=== PATIENT | female | born 1990 | race Caucasian/White ===

== ENCOUNTER 2016-09-21 10:16 | Outpatient (CLI) | payer MEDICAID ==
--- NOTE | 2016-09-21 10:54 | Non Stress Test Report ---
Non Stress Test Datetime Report Generated by CPN: 09/21/2016 10:54 DEMOGRAPHIC EGA NST: 34.5 INDICATION Indication for Study: Diabetes Mellitus; Ordered by Provider MONITORING Monitor Explained: Monitor Explained; Test Explained; Patient Verbalized Understanding Time on Monitor: 09/21/2016 10:24 Time off Monitor: 09/21/2016 10:47 NST Duration: 23 NST INTERVENTIONS NST Interventions: PO Hydration; Reposition Patient Physician Notified NST: C Cedeño CNM BABY A: [id number] BABY A Movement : Present Contraction Frequency : Irr FHR Baseline : 135 Accelerations : Prolonged Decelerations : None Variability : Moderate 6-25bpm NST Review: Meets Criteria for Reactive NST NST Review and Verified By : Dee Valencia RN NST Results: Reactive NST REPORT Report Trigger: Send Report
== END 2016-09-21 10:49 | disposition home or self-care (01) ==
LOC: LC 10:16
PROVIDERS: ATTEND Obstetrics & Gynecology
PROC: 4A1HXCZ Monitoring of Products of Conception, Cardiac Rate, External Approach (ICD-10-PCS; principal; 2016-09-21)
DX: O24.419 Gestational diabetes mellitus in pregnancy, unspecified control (principal); Z3A.34 34 weeks gestation of pregnancy
CPT/HCPCS: 59025

== ENCOUNTER 2016-10-09 11:44 | Outpatient (CLI) | payer MEDICAID ==
--- NOTE | 2016-10-09 12:00 | L&D Flow Sheet ---
LD Flowsheet Datetime Report Generated by CPN: 10/09/2016 12:00 Datetime: 10/09/2016 11:52 Vital Signs NBP Sys/Rebekah/Mean (mmHg): 100 (QS system process) : 57 (QS system process) : 75 (QS system process) Pulse: 73 (QS system process) Respirations: 16 (Alison Vitrano, RN) Temperature (F): 97.8 (Alison Vitrano, RN) Temperature (C): 36.6 (QS system process) Temperature Route: Oral (Alison Vitrano, RN) Patient Care Patient Position/Activity: Left Lateral; Semi-Fowlers (Alison Kyra, RN) I/O Interventions: Clear Liquids Given (Alison Vitrano, RN) Teaching Instructional Method: Verbal; Patient Instructed; Family/Support Person Instructed; Verbalized Understanding (Alison Rae RN) Plan of Care: Plan of Care Discussed (Alison Rae RN) Unit Routine: [place] to Room; Call Ly; Bed; Unit Personnel; Monitoring; Safety/Fall Risk Prevention; Bathroom Privileges (Alison Elviraano, RN) Datetime: 10/09/2016 11:51 Communication Communication Comments: Pt to unit for repeat NST per Melinda Taylor CNM. Pt receiving NSTs for GDM. Pt denies complaints or needs at this time. (Alison Rae RN)
--- NOTE | 2016-10-09 12:19 | Non Stress Test Report ---
Non Stress Test Datetime Report Generated by CPN: 10/09/2016 12:19 DEMOGRAPHIC EGA NST: 37.2 INDICATION Indication for Study: Ordered by Provider MONITORING Monitor Explained: Monitor Explained; Test Explained; Patient Verbalized Understanding Time on Monitor: 10/09/2016 11:52 Time off Monitor: 10/09/2016 12:13 NST Duration: 21 NST INTERVENTIONS NST Interventions: None Physician Notified NST: A. Emmel, CNM BABY A: [id number] BABY A Movement : Present Contraction Frequency : Occasional FHR Baseline : 135 Accelerations : 15X15 Variability : Moderate 6-25bpm NST Review: Meets Criteria for Reactive NST NST Review and Verified By : Robbi Alva RN NST Results: Reactive NST REPORT Report Trigger: Send Report
== END 2016-10-09 12:15 | disposition home or self-care (01) ==
LOC: LC 11:44
PROVIDERS: ATTEND Obstetrics & Gynecology
PROC: 4A1HXCZ Monitoring of Products of Conception, Cardiac Rate, External Approach (ICD-10-PCS; principal; 2016-10-09)
DX: O47.1 False labor at or after 37 completed weeks of gestation (principal); Z3A.37 37 weeks gestation of pregnancy
CPT/HCPCS: 59025

== ENCOUNTER 2016-10-22 07:11 | Inpatient (IN) | payer MEDICAID ==
[2016-10-22] MEDS ORDERED: RINGERS SOLUTION,LACTATED 1,000 ML IV ONE (07:29)
[2016-10-22] MEDS ORDERED: RINGERS SOLUTION,LACTATED 1,000 ML IV PRN ×2 (07:29→07:30)
[2016-10-22] MEDS ORDERED: RINGERS SOLUTION,LACTATED 300 ML IV ONE (07:30)
--- NOTE | 2016-10-22 08:00 | L&D Flow Sheet ---
LD Flowsheet Datetime Report Generated by CPN: 10/22/2016 08:00 Datetime: 10/22/2016 07:54 Temperature (F): 97.6 (Marck Shari, RN) Temperature (C): 36.4 (QS system process) Datetime: 10/22/2016 07:49 Vaginal Exam Dilatation (cm): 2.0 (Marck Mccarthy RN) Effacement (%): 50 (Marck Mccarthy RN) Station: -2 (Marck Mccarthy RN) Exam by: Carl Mccarthy RN (Marck Mccarthy RN) Vaginal Bleeding: None (Marck Mccarthy RN) Cervix, Consistency: Moderate (Marck Mccarthy RN) Cervix, Position: Posterior (Marck Mccarthy RN) Datetime: 10/22/2016 07:42 Patient Care IV/Blood Work: IV Started; IV Bolus Started (Marck Mccarthy RN) Patient Care Comments: 18G L Forearm; LR bolus 300ml per order then 125ml/hr. Pt tolerated well, good blood return. (Marck Mccarthy, RN) Datetime: 10/22/2016 07:33 Procedures: Consents Signed (Marck Mccarthy, RN) Datetime: 10/22/2016 07:29 Vital Signs NBP Sys/Rebekah/Mean (mmHg): 123 (QS system process) : 72 (QS system process) : 90 (QS system process) Pulse: 100 (QS system process)
[2016-10-22 08:08] LABS: APPEARANCE,URINE CLOUDY; BILIRUBIN,URINE NEGATIVE (NEGATIVE); GLUCOSE, URINE NEGATIVE (NEGATIVE); KETONES,URINE NEGATIVE (NEGATIVE); LEUKOCYTE ESTERASE,URINE LARGE (NEGATIVE); NITRITE,URINE POSITIVE (NEGATIVE); PROTEIN,URINE NEGATIVE (NEGATIVE); URINE SPECIFIC GRAVITY 1.014; UROBILINOGEN,URINE NEGATIVE mg/dL (<2.0)
[2016-10-22] MEDS ORDERED: OXYTOCIN/NORMAL SALINE 1,000 ML IV PRN ×2 (08:21→16:54)
[2016-10-22 08:24] LABS: URINE BARBITURATES SCREEN NEGATIVE; URINE METHADONE SCREEN NEGATIVE; URINE OPIATES LOW NEGATIVE; URINE PHENCYCLIDINE SCREEN NEGATIVE
[2016-10-22] MEDS ORDERED: OXYTOCIN/NORMAL SALINE 20 UNIT/1,000 ML RTUINJ ONE (08:24)
[2016-10-22 08:26] LABS: ABSOLUTE LYMPHOCYTES (AUTO) 1.3 10^3/uL (0.5-4.7); ABSOLUTE MONOCYTES (AUTO) 0.9 10^3/uL (0.1-1.4); ABSOLUTE NEUT (AUTO) 7.5 10^3/uL (1.7-8.2); BASOPHILS % (AUTO) 0.2 % (0-2); EOSINOPHILS % (AUTO) 0.5 % (0-6); HEMATOCRIT 28.7 % (36.0-47.0); HEMOGLOBIN 9.7 g/dL (12.0-15.5); HGB HCT DIFFERENCE 0.4; MEAN CORPUSCULAR HEMOGLOBIN 27.4 pg (27.0-33.4); MEAN CORPUSCULAR HGB CONC 33.7 g/dL (32.0-36.0); MEAN CORPUSCULAR VOLUME 81 fl (80-97); MONOCYTES % (AUTO) 8.8 % (3-13); RED BLOOD COUNT 3.53 10^6/uL (3.72-5.28); SEGMENTED NEUTROPHILS % (AUTO) 77.5 % (42-78); WHITE BLOOD COUNT 9.7 10^3/uL (4.0-10.5)
--- NOTE | 2016-10-22 10:00 | L&D Flow Sheet ---
LD Flowsheet Datetime Report Generated by CPN: 10/22/2016 10:00 Datetime: 10/22/2016 09:58 Pitocin (milliunit): Pitocin Increased to (milliunits) @ 6 (Marck Shari, RN) Datetime: 10/22/2016 09:53 NBP Sys/Rebekah/Mean (mmHg): 116 (QS system process) : 65 (QS system process) : 84 (QS system process) Pulse: 65 (QS system process) Datetime: 10/22/2016 09:52 Patient Position/Activity: Right Extreme (Marck Mccarthy RN) Datetime: 10/22/2016 09:45 Monitor Mode: External; Palpation (Marck Mccarthy RN) Quality: Moderate (Marck Mccarthy RN) Resting Tone (Palpate): Relaxed (Marck Mccarthy RN) Contraction Comments: UTD; adjusting toco (Marck Mccarthy RN) Monitor Mode: External US (Marck Mccarthy RN) FHR Baseline Rate : 140 (Marck Mccarthy RN) Variability: Moderate 6-25 bpm (Marck Mccarthy RN) Accelerations: 10X10 (Marck Mccarthy RN) Decelerations: None (Marck cMcarthy RN) Pitocin (milliunit): Pitocin Remains (milliunits) @ 4 (Marck Mccarthy RN) Communication: RN at Bedside; RN Reviewed Strip (Marck Mccarthy RN) Datetime: 10/22/2016 09:40 Monitor Interventions for UA: [place] Adjusted (Marck Shari, RN) Datetime: 10/22/2016 09:38 NBP Sys/Rebekah/Mean (mmHg): 97 (QS system process) : 55 (QS system process) : 72 (QS system process) Pulse: 69 (QS system process) Datetime: 10/22/2016 09:36 Monitor Interventions for UA: [place] Adjusted (Marck Shari, RN) Pitocin (milliunit): Pitocin Increased to (milliunits) @ 4 (Marck Mccarthy, RN) Datetime: 10/22/2016 09:35 Pain Scale: 2 (Marck Mccarthy RN) Pain Presence: Intermittent (Marck Mccarthy RN) Pain Type: Contraction (Marck Mccarthy RN) Pain Location: Abdomen (Marck Mccarthy RN) Pain Relief Measures: Comfort Measures (Marck Mccarthy RN) Pain Coping: Talking Through Contractions; Declines Medication or Epidural (Marck Mccarthy RN) Pain Assessment Comments: Pt resting, no distress noted. (Marck Mccarthy RN) Comfort Measures: Breathing/Relaxation (Marck Mccarthy RN) Datetime: 10/22/2016 09:30 Monitor Mode: External; Palpation (Marck Mccarthy RN) Frequency (min): 1-3 (Marck Mccarthy RN) Quality: Mild/Moderate (Marck Mccarthy RN) Duration (sec): 50-80 (Marck Mccarthy RN) Resting Tone (Palpate): Relaxed (Marck Mccarthy RN) Monitor Mode: External US (Marck Mccarthy RN) FHR Baseline Rate : 140 (Marck Mccarthy RN) FHR Baseline Changes: No Baseline Change (Marck Mccarthy RN) Variability: Moderate 6-25 bpm (Marck Mccarthy RN) Accelerations: 15X15 (Marck Mccarthy RN) Decelerations: None (Marck Mccarthy RN) Pitocin (milliunit): Pitocin Remains (milliunits) @ 2 (Marck Mccarthy RN) Communication: RN at Bedside; RN Reviewed Strip (Marck Mccarthy RN) Communication Comments: [employer] dynamics consultant at bedside (Marck Mccarthy RN) Datetime: 10/22/2016 09:25 I/O Interventions: Up to BR (Marck Mccarthy RN) Datetime: 10/22/2016 09:24 NBP Sys/Rebekah/Mean (mmHg): 110 (QS system process) : 56 (QS system process) : 76 (QS system process) Pulse: 75 (QS system process) Datetime: 10/22/2016 09:15 Monitor Mode: External; Palpation (Marck Mccarthy RN) Frequency (min): 1-3 (Marck Mccarthy RN) Quality: Mild/Moderate (Marck Mccarthy RN) Duration (sec): 50-100 (Marck Mccarthy RN) Resting Tone (Palpate): Relaxed (Marck Mccarthy RN) Monitor Mode: External US (Marck Mccarthy RN) FHR Baseline Rate : 140 (Marck Mccarthy, RN) Variability: Moderate 6-25 bpm (Marck Mccarthy, RN) Accelerations: 15X15 (Marck Mccarthy, RN) Decelerations: None (Marck Mccarthy, WIL) Pitocin (milliunit): Pitocin Remains (milliunits) @ 2 (Marck Mccarthy RN) Communication: RN at Bedside; RN Reviewed Strip (Marck Mccarthy RN) Datetime: 10/22/2016 09:09 NBP Sys/Rebekah/Mean (mmHg): 100 (QS system process) : 55 (QS system process) : 75 (QS system process) Pulse: 78 (QS system process) Datetime: 10/22/2016 09:00 Respirations: 16 (Marck Mccarthy RN) Monitor Mode: External; Palpation (Marck Mccarthy RN) Frequency (min): 4-6 (Marck Mccarthy RN) Quality: Mild/Moderate (Marck Mccarthy RN) Duration (sec): 70-110 (Marck Mccarthy RN) Resting Tone (Palpate): Relaxed (Marck Mccarthy RN) Monitor Mode: External US (Marck Mccarthy RN) FHR Baseline Rate : 140 (Marck Mccarthy RN) Variability: Moderate 6-25 bpm (Marck Mccarthy RN) Accelerations: 15X15 (Marck Mccarthy RN) Decelerations: None (Marck Mccarthy RN) Level of Consciousness: Fully Conscious (Marck Mccarthy RN) Headache: Denies (Marck Mccarthy RN) Nausea/Vomiting: Denies (Marck Mccarthy RN) Pitocin (milliunit): Pitocin Remains (milliunits) @ 2 (Marck Mccarthy RN) Communication: RN at Bedside; RN Reviewed Strip (Marck Mccarthy RN) Datetime: 10/22/2016 08:53 NBP Sys/Rebekah/Mean (mmHg): 97 (QS system process) : 52 (QS system process) : 68 (QS system process) Pulse: 67 (QS system process) Datetime: 10/22/2016 08:52 Pitocin (milliunit): Pitocin Started (milliunits) @ 2 (Marck Shari, RN) Datetime: 10/22/2016 08:51 Labor/Induction: Labor Stages; Induction (Marck Shari, RN) Medications: Pitocin (Marck Shari, RN) Datetime: 10/22/2016 08:48 Patient Care Comments: LR 125ml/hr (Marck Shari, RN) Datetime: 10/22/2016 08:44 I/O Interventions: Popsicle (Marck Shari, RN) Datetime: 10/22/2016 08:43 Communication Comments: K Santiago CNM states pt may have popsicle. (Marck Shari, RN) Datetime: 10/22/2016 08:39 Monitor Interventions for UA: [place] Adjusted (Marck Shari, RN) Datetime: 10/22/2016 08:38 Bedside Blood Glucose: 70 (QS system process) Patient Position/Activity: Left Lateral (Marck Shari, RN) Datetime: 10/22/2016 08:33 Monitor Interventions for UA: [place] Adjusted (Marck Shari, RN) Datetime: 10/22/2016 08:32 Communication Comments: K Santiago CNM at bedside to assess pt (Marck Riggseet, RN) Datetime: 10/22/2016 08:31 NBP Sys/Rebekah/Mean (mmHg): 95 (QS system process) : 52 (QS system process) : 69 (QS system process) Pulse: 72 (QS system process) IV/Blood Work: IV Bolus Started (Marck Riggseet, RN) Patient Position/Activity: Right Lateral (Marck Riggseet, RN) Datetime: 10/22/2016 08:30 Monitor Mode: External; Palpation (Marck Shari, RN) Frequency (min): 1-6 (Marck Shari, RN) Quality: Mild/Moderate (Marck Shari, RN) Duration (sec): 60-110 (Marck Shari, RN) Resting Tone (Palpate): Relaxed (Marck Shari, RN) Monitor Mode: External US (Marck Riggseet, RN) FHR Baseline Rate : 145 (Marck Shari, RN) Variability: Moderate 6-25 bpm (Marck Shari, RN) Accelerations: 10X10 (Marck Shari, RN) Decelerations: Prolonged (Marck Shari, RN) Comments: prolonged decel noted after multiple contractions without relaxation; Russ Santiago CNM aware. (Marck Riggseet, RN) Communication: RN at Bedside; RN Reviewed Strip (Marck Tesfayet, RN) Datetime: 10/22/2016 08:23 Patient Position/Activity: Left Lateral (Marck Shari, RN) Communication: RN at Bedside (Marck Riggseet, RN) Datetime: 10/22/2016 08:17 I/O Interventions: Up to BR (Marck Mccarthy RN) Provider Reviewed Strip: Yes (Marck Mccarthy RN) Communication Comments: Russ Santiago CNM reviewed strip; notified of pt hx, induction, VE, case score, vs. Orders to start pitocin 20 units/1000ml NSS at 2mu/min; increase q 15min. (Marck Mccarthy RN) Datetime: 10/22/2016 08:05 IV/Blood Work: Labs Drawn (Marck Mccarthy RN) Datetime: 10/22/2016 08:00 Monitor Mode: External; Palpation (Marck Mccarthy RN) Frequency (min): irregular (Marck Mccarthy RN) Quality: Mild (Marck Mccarthy RN) Duration Criteria: Less than Two 120 Second Contractions (Marck Mccarthy RN) Pattern: Normal: <= 5 Contractions in 10 Minutes (Marck Mccarthy RN) Resting Tone (Palpate): Relaxed (Marck Mccarthy RN) Monitor Mode: External US (Marck Mccarthy RN) FHR Baseline Rate : 145 (Marck Mccarthy RN) Variability: Moderate 6-25 bpm (Marck Mccarthy RN) Accelerations: 15X15 (Marck Mccarthy RN) Decelerations: None (Marck Mccarthy RN) Pain Scale: 2 (Marck Mccarthy RN) Pain Presence: Intermittent (Marck Mccarthy RN) Pain Type: Contraction (Marck Mccarthy RN) Pain Location: Abdomen (Marck Mccarthy RN) Pain Relief Measures: Comfort Measures (Marck Mccarthy RN) Pain Coping: Talking Through Contractions; Declines Medication or Epidural (Marck Mccarthy RN) Comfort Measures: Breathing/Relaxation (Marck Mccarthy RN) Communication: RN at Bedside; RN Reviewed Strip (Marck Mcacrthy RN)
--- NOTE | 2016-10-22 12:00 | L&D Flow Sheet ---
LD Flowsheet Datetime Report Generated by CPN: 10/22/2016 12:00 Datetime: 10/22/2016 11:53 NBP Sys/Rebekah/Mean (mmHg): 116 (QS system process) : 71 (QS system process) : 86 (QS system process) Pulse: 90 (QS system process) Datetime: 10/22/2016 11:45 Monitor Mode: External; Palpation (Marck Mccarthy RN) Frequency (min): 1.5-2.5 (Marck Shari, RN) Quality: Moderate (Marck Shari, RN) Duration (sec): 70-90 (Marck Riggseet, RN) Duration Criteria: Less than Two 120 Second Contractions (Marck Tesfayet, RN) Resting Tone (Palpate): Relaxed (Marck Riggseet, RN) Monitor Mode: External US (Marck Mccarthy, RN) FHR Baseline Rate : 135 (Marck Tesfayet, RN) Variability: Moderate 6-25 bpm (Marck Riggseet, RN) Accelerations: 15X15 (Marck Riggseet, RN) Decelerations: None (Marck Tesfayet, RN) Communication: RN at Bedside; RN Reviewed Strip (Marck Mccarthy, RN) Datetime: 10/22/2016 11:42 Pitocin (milliunit): Pitocin Decreased to (milliunits) @ 2 (Marck Tesfayet, RN) Datetime: 10/22/2016 11:41 Comfort Measures: Rocking Chair (Marck Tesfayet, RN) Datetime: 10/22/2016 11:30 Monitor Mode: External; Palpation (Marck Mccarthy RN) Frequency (min): 1-2 (Marck Mccarthy RN) Quality: Moderate (Marck Mccarthy RN) Duration (sec): 60-80 (Marck Mccarthy RN) Resting Tone (Palpate): Relaxed (Marck Mccarthy RN) Monitor Mode: External US (Marck Mccarthy RN) FHR Baseline Rate : 140 (Marck Mccarthy RN) Variability: Moderate 6-25 bpm (Marck Mccarthy RN) Accelerations: 15X15 (Marck Mccarthy RN) Decelerations: None (Marck Mccarthy RN) Pain Scale: 3 (Marck Mccarthy RN) Pain Presence: Intermittent (Marck Mccarthy RN) Pain Type: Contraction (Marck Mccarthy RN) Pain Location: Abdomen (Marck Mccarthy RN) Pain Relief Measures: Comfort Measures (Marck Mccarthy RN) Pain Coping: Talking Through Contractions; Declines Medication or Epidural (Marck Mccarthy RN) Pitocin (milliunit): Pitocin Decreased to (milliunits) @ 4 (Marck Mccarthy RN) Comfort Measures: Breathing/Relaxation (Marck Mccarthy RN) Communication: RN at Bedside; RN Reviewed Strip (Marck Mccarthy RN) Datetime: 10/22/2016 11:24 NBP Sys/Rebekah/Mean (mmHg): 117 (QS system process) : 72 (QS system process) : 90 (QS system process) Pulse: 78 (QS system process) Datetime: 10/22/2016 11:15 Monitor Mode: External; Palpation (Marck Mccarthy RN) Frequency (min): 1-2 (Marck Mccarthy, RN) Quality: Moderate (Marck Mccarthy, RN) Duration (sec): 70-90 (Marck Mccarthy, RN) Resting Tone (Palpate): Relaxed (Marck Mccarthy, RN) Monitor Mode: External US (Marck Mccarthy, RN) FHR Baseline Rate : 140 (Marck Mccarthy, RN) Variability: Moderate 6-25 bpm (Marck Riggseet, RN) Accelerations: 15X15 (Marck Tesfayet, RN) Decelerations: Variable (Marck Mccarthy, RN) Communication: RN at Bedside; RN Reviewed Strip (Marck Mccarthy RN) Datetime: 10/22/2016 11:09 NBP Sys/Rebekah/Mean (mmHg): 122 (QS system process) : 76 (QS system process) : 93 (QS system process) Pulse: 76 (QS system process) Datetime: 10/22/2016 11:03 Monitor Interventions for UA: [place] Adjusted (Marck Shari, RN) Datetime: 10/22/2016 11:02 Monitor Interventions for UA: [place] Adjusted (Marck Shari, RN) Datetime: 10/22/2016 11:00 Monitor Mode: External; Palpation (Marck Shari, RN) Frequency (min): 1-4 (Marck Shari, RN) Quality: Moderate (Marck Shari, RN) Duration (sec): 60-70 (Marck Shari, RN) Duration Criteria: Less than Two 120 Second Contractions (Marck Shari, RN) Pattern: Normal: <= 5 Contractions in 10 Minutes (Marck Shari, RN) Resting Tone (Palpate): Relaxed (Marck Shari, RN) Contraction Comments: Coupling noted (Marck Shari, RN) Monitor Mode: External US (Marck Shari, RN) FHR Baseline Rate : 130 (Marck Shari, RN) Variability: Moderate 6-25 bpm (Marck Shari, RN) Accelerations: 15X15 (Marck Shari, RN) Decelerations: None (Marck Shari, RN) Communication: RN at Bedside; RN Reviewed Strip (Marck Shari, RN) Datetime: 10/22/2016 10:57 Patient Position/Activity: Hands-Knees (Marck Shari, RN) Datetime: 10/22/2016 10:53 I/O Interventions: Up to BR (Marck Mccarthy RN) Datetime: 10/22/2016 10:45 Monitor Mode: External; Palpation (Marck Mccarthy RN) Frequency (min): 1-5 (Marck Mccarthy RN) Quality: Moderate (Marck Mccarthy RN) Duration (sec): 60-80 (Marck Mccarthy RN) Resting Tone (Palpate): Relaxed (Marck Mccarthy RN) Monitor Mode: External US (Marck Mccarthy RN) FHR Baseline Rate : 140 (Marck Mccarthy RN) Variability: Moderate 6-25 bpm (Marck Mccarthy RN) Accelerations: None (Marck Mccarthy RN) Decelerations: None (Marck Mccarthy RN) Pitocin (milliunit): Pitocin Increased to (milliunits) @ 8 (Marck Mccarthy RN) Communication: RN at Bedside; RN Reviewed Strip (Marck Mccarthy RN) Datetime: 10/22/2016 10:38 NBP Sys/Rebekah/Mean (mmHg): 93 (QS system process) : 51 (QS system process) : 67 (QS system process) Pulse: 69 (QS system process) Datetime: 10/22/2016 10:30 Monitor Mode: External; Palpation (Marck Mccarthy RN) Frequency (min): 1-5 (Marck Mccarthy RN) Quality: Moderate (Marck Mccarthy RN) Duration (sec): 50-80 (Marck Mccarthy, RN) Resting Tone (Palpate): Relaxed (Marck Mccarthy, RN) Contraction Comments: Coupling noted (Marck Mccarthy RN) Monitor Mode: External US (Marck Mccarthy RN) FHR Baseline Rate : 140 (Marck Mccarthy, RN) Variability: Moderate 6-25 bpm (Marck Tesfayet, RN) Accelerations: 15X15 (Marck Mccarthy, RN) Decelerations: Variable (Marck Mccarthy RN) Pitocin (milliunit): Pitocin Remains (milliunits) @ (Marck Mccarthy RN) Communication: RN at Bedside; RN Reviewed Strip (Marck Mccarthy RN) Datetime: 10/22/2016 10:29 Pain Scale: 3 (Mrack Mccarthy RN) Pain Presence: Intermittent (Marck Mccarthy RN) Pain Type: Cramping; Contraction (Marck Mccarthy RN) Pain Location: Abdomen (Marck Mccarthy RN) Pain Relief Measures: Comfort Measures (Marck Mccarthy RN) Pain Coping: Talking Through Contractions; Declines Medication or Epidural (Marck Mccarthy RN) Pain Assessment Comments: Pt resting, no distress noted. (Marck Mccarthy RN) IV/Blood Work: New IV Bag Hung (Marck Mccarthy RN) Comfort Measures: Breathing/Relaxation (Marck Mccarthy RN) Patient Care Comments: LR 125ml/hr (Marck Mccarthy RN) Communication: RN at Bedside; RN Reviewed Strip (Marck Mccarthy RN) Datetime: 10/22/2016 10:25 Monitor Interventions for UA: [place] Adjusted (Marck Mccarthy, RN) Patient Position/Activity: Left Extreme (Marck Tesfayet, RN) Datetime: 10/22/2016 10:23 NBP Sys/Rebekah/Mean (mmHg): 107 (QS system process) : 58 (QS system process) : 77 (QS system process) Pulse: 78 (QS system process) Datetime: 10/22/2016 10:15 Monitor Mode: External; Palpation (Marck Riggseet, RN) Frequency (min): 2-3 (Marck Mccarthy, RN) Quality: Moderate (Marck Riggseet, RN) Duration (sec): 60-70 (Marck [place], RN) Duration Criteria: Less than Two 120 Second Contractions (Marck Riggseet, RN) Pattern: Normal: <= 5 Contractions in 10 Minutes (Marck Riggseet, RN) Resting Tone (Palpate): Relaxed (aMrck Mccarthy RN) Monitor Mode: External US (Marck Mccarthy RN) FHR Baseline Rate : 140 (Marck Mccarthy RN) FHR Baseline Changes: No Baseline Change (Marck Mccarthy RN) Variability: Moderate 6-25 bpm (Marck Mccarthy RN) Accelerations: 15X15 (Marck Mccarthy RN) Decelerations: None (Marck Mccarthy RN) Pitocin (milliunit): Pitocin Remains (milliunits) @ 6 (Marck Mccarthy RN) Communication: RN at Bedside; RN Reviewed Strip (Marck Mccarthy RN) Datetime: 10/22/2016 10:08 NBP Sys/Rebekah/Mean (mmHg): 106 (QS system process) : 57 (QS system process) : 76 (QS system process) Pulse: 66 (QS system process) Datetime: 10/22/2016 10:00 Monitor Mode: External; Palpation (Marck Mccarthy RN) Frequency (min): 3-4 (Marck Mccarthy RN) Quality: Moderate (Marck Mccarthy RN) Duration (sec): 50-70 (Marck Mccarthy RN) Duration Criteria: Less than Two 120 Second Contractions (Marck Mccarthy RN) Pattern: Normal: <= 5 Contractions in 10 Minutes (Marck Mccarthy RN) Resting Tone (Palpate): Relaxed (Marck Mccarthy RN) Monitor Mode: External US (Marck Mccarthy RN) FHR Baseline Rate : 140 (Marck Mccarthy RN) Variability: Moderate 6-25 bpm (Marck Mccarthy RN) Accelerations: 15X15 (Marck Mccarthy RN) Decelerations: None (Marck Mccarthy RN) Communication: RN at Bedside; RN Reviewed Strip (Marck Mccarthy RN)
--- NOTE | 2016-10-22 14:00 | L&D Flow Sheet ---
LD Flowsheet Datetime Report Generated by CPN: 10/22/2016 14:00 Datetime: 10/22/2016 13:53 NBP Sys/Rebekah/Mean (mmHg): 111 (QS system process) : 69 (QS system process) : 85 (QS system process) Pulse: 66 (QS system process) Temperature (F): 97.0 (Marck Toneyfleet, RN) Temperature (C): 36.1 (QS system process) Datetime: 10/22/2016 13:45 Pitocin (milliunit): Pitocin Increased to (milliunits) @ 8 (Marck Riggseet, RN) Datetime: 10/22/2016 13:38 NBP Sys/Rebekah/Mean (mmHg): 113 (QS system process) : 67 (QS system process) : 83 (QS system process) Pulse: 69 (QS system process) Datetime: 10/22/2016 13:35 Monitor Interventions for UA: [place] Adjusted (Marck Tesfayet, RN) Monitor Interventions for FHR: Ultrasound Adjusted (Marck Riggseet, RN) Patient Position/Activity: Tailors (Marck Riggseet, RN) Datetime: 10/22/2016 13:33 Pain Scale: 4 (Marck Mccarthy RN) Pain Presence: Intermittent (Marck Mccarthy RN) Pain Type: Contraction (Marck Mccarthy RN) Pain Location: Abdomen (Marck Mccarthy RN) Pain Relief Measures: Comfort Measures (Marck Mccarthy RN) Pain Coping: Breathing Through Contractions; Declines Medication or Epidural (Marck Mccarthy RN) Dilatation (cm): 4.0 (Marck Mccarthy RN) Effacement (%): 60 (Marck Mccarthy RN) Station: -2 (Marck Mccarthy RN) Exam by: Carl Mccarthy RN (Marck Mccarthy RN) Cervix, Consistency: Moderate (Marck Mccarthy RN) Cervix, Position: Posterior (Marck Mccarthy RN) Vaginal Exam Comments: Russ Santiago CNM notified (Marck Mccarthy RN) Comfort Measures: Breathing/Relaxation; Family Support (Marck Mccarthy RN) Datetime: 10/22/2016 13:30 Monitor Mode: External; Palpation (Marck Mccarthy RN) Frequency (min): 2-3 (Marck Mccarthy RN) Quality: Moderate to Strong (Marck Mccarthy RN) Duration (sec): 70-90 (Marck Mccarthy RN) Resting Tone (Palpate): Relaxed (Marck Shari, RN) Monitor Mode: External US (Marck Tesfayet, RN) FHR Baseline Rate : 130 (Marck Riggseet, RN) Variability: Moderate 6-25 bpm (Marck Riggseet, RN) Accelerations: 15X15 (Marck Toney[place], RN) Decelerations: None (Marck Riggseet, RN) Communication: RN at Bedside; RN Reviewed Strip (Marck Mccarthy, RN) Datetime: 10/22/2016 13:29 Bedside Blood Glucose: 72 (QS system process) Datetime: 10/22/2016 13:25 Comfort Measures: Rocking Chair (Marck Riggseet, RN) Datetime: 10/22/2016 13:15 Respirations: 18 (Marck Shari, RN) Monitor Mode: External; Palpation (Marck Shari, RN) Frequency (min): 2-2.5 (Marck Shari, RN) Quality: Moderate (Marck Shari, RN) Duration (sec): 60-110 (Marck Shari, RN) Duration Criteria: Less than Two 120 Second Contractions (Marck Shari, RN) Pattern: Normal: <= 5 Contractions in 10 Minutes (Marck Shari, RN) Resting Tone (Palpate): Relaxed (Marck Shari, RN) Monitor Mode: External US (Marck Shari, RN) FHR Baseline Rate : 130 (Marck Shari, RN) FHR Baseline Changes: No Baseline Change (Marck Shari, RN) Variability: Moderate 6-25 bpm (Marck Shari, RN) Accelerations: 15X15 (Marck Shari, RN) Decelerations: Variable (Marck Shari, RN) Level of Consciousness: Fully Conscious (Marck Shari, RN) Headache: Denies (Marck Shari, RN) Nausea/Vomiting: Denies (Marck Shari, RN) RUQ Epigastric Pain: Denies (Marck Riggseet, RN) Communication: RN at Bedside; RN Reviewed Strip (Marck Mccarthy, RN) Datetime: 10/22/2016 13:11 I/O Interventions: Up to BR (Marck Shari, RN) Datetime: 10/22/2016 13:08 NBP Sys/Rebekah/Mean (mmHg): 113 (QS system process) : 73 (QS system process) : 90 (QS system process) Pulse: 70 (QS system process) Datetime: 10/22/2016 13:00 Respirations: 16 (Marck Shari, RN) Monitor Mode: External; Palpation (Marck Shari, RN) Frequency (min): 1-4 (Marck Shari, RN) Quality: Moderate (Marck Shari, RN) Duration (sec): 60-80 (Marck Shari, RN) Resting Tone (Palpate): Relaxed (Marck Shari, RN) FHR Baseline Rate : 130 (Marck Shari, RN) Variability: Moderate 6-25 bpm (Marck Shari, RN) Accelerations: 15X15 (Marck Shari, RN) Decelerations: Variable (Marck Shari, RN) Level of Consciousness: Fully Conscious (Marck Mccarthy RN) Headache: Denies (Marck Mccarthy RN) Nausea/Vomiting: Denies (Marck Mccarthy RN) RUQ Epigastric Pain: Denies (Marck Mccarthy RN) Communication: RN at Bedside; RN Reviewed Strip (Marck Mccarthy RN) Datetime: 10/22/2016 12:54 NBP Sys/Rebekah/Mean (mmHg): 113 (QS system process) : 85 (QS system process) : 96 (QS system process) Pulse: 66 (QS system process) Datetime: 10/22/2016 12:45 Monitor Mode: External; Palpation (Marck Mccarthy RN) Frequency (min): 1-4 (Marck Mccarthy RN) Quality: Moderate (Marck Mccarthy RN) Duration (sec): 60-90 (Marck Mccarthy RN) Duration Criteria: Less than Two 120 Second Contractions (Marck Mccarthy RN) Pattern: Normal: <= 5 Contractions in 10 Minutes (Marck Mccarthy RN) Resting Tone (Palpate): Relaxed (Marck Mccarthy RN) Contraction Comments: Coupling noted (Marck Mccarthy RN) Monitor Mode: External US (Marck Mccarthy RN) FHR Baseline Rate : 130 (Marck Mccarthy RN) FHR Baseline Changes: No Baseline Change (Marck Mccarthy RN) Variability: Moderate 6-25 bpm (Marck Mccarthy RN) Accelerations: 15X15 (Marck Mccarthy RN) Decelerations: None (Marck Mccarthy RN) Pain Scale: 3 (Marck Mccarthy RN) Pain Presence: Intermittent (Marck Mccarthy RN) Pain Type: Contraction (Marck Mccarthy RN) Pain Location: Abdomen (Marck Mccarthy RN) Pain Relief Measures: Comfort Measures (Marck Mccarthy RN) Pain Coping: Talking Through Contractions; Declines Medication or Epidural (Marck Mccarthy RN) Communication: RN at Bedside; RN Reviewed Strip (Marck Mccarthy RN) Datetime: 10/22/2016 12:43 Monitor Interventions for UA: [place] Adjusted (Marck Mccarthy RN) Monitor Interventions for FHR: Ultrasound Adjusted (Marck Mccarthy RN) Datetime: 10/22/2016 12:40 Pitocin (milliunit): Pitocin Increased to (milliunits) @ 6 (Marck Mccarthy RN) Patient Position/Activity: Right Lateral; Peanut Ball (Marck Mccarthy RN) Datetime: 10/22/2016 12:38 NBP Sys/Rebekah/Mean (mmHg): 112 (QS system process) : 69 (QS system process) : 86 (QS system process) Pulse: 70 (QS system process) Datetime: 10/22/2016 12:30 Respirations: 16 (Marck Mccarthy, WIL) Temperature (F): 98.5 (Marck Mccarthy RN) Temperature (C): 36.9 (QS system process) Monitor Mode: External; Palpation (Marck Mccarthy, RN) Frequency (min): 1-5 (Marck Mccarthy, RN) Quality: Moderate (Marck Tesfayet, RN) Duration (sec): 70-100 (Marck Tesfayet, RN) Duration Criteria: Less than Two 120 Second Contractions (Marck Mccarthy, RN) Pattern: Normal: <= 5 Contractions in 10 Minutes (Marck Mccarthy, RN) Resting Tone (Palpate): Relaxed (Marck Mccarthy, RN) Monitor Mode: External US (Marck Mccarthy, RN) FHR Baseline Rate : 130 (Marck Tesfayet, RN) Variability: Moderate 6-25 bpm (Marck Tesfayet, RN) Accelerations: 15X15 (Marck Mccrathy, RN) Decelerations: None (Marck Mccarthy, RN) Level of Consciousness: Fully Conscious (Marck Mccarthy, RN) Headache: Denies (Marck Mccarthy RN) Nausea/Vomiting: Denies (Marck Mccarthy RN) Communication: RN at Bedside; RN Reviewed Strip (Marck Mccarthy RN) Datetime: 10/22/2016 12:23 NBP Sys/Rebekah/Mean (mmHg): 109 (QS system process) : 64 (QS system process) : 82 (QS system process) Pulse: 90 (QS system process) Datetime: 10/22/2016 12:15 Monitor Mode: External; Palpation (Marck Mccarthy RN) Frequency (min): 2-4 (Marck Mccarthy RN) Quality: Moderate (Marck Mccarthy RN) Duration (sec): 60-80 (Marck Mccarthy RN) Resting Tone (Palpate): Relaxed (Marck Mccarthy RN) Monitor Mode: External US (Marck Mccarthy RN) FHR Baseline Rate : 130 (Marck Mccarthy RN) Variability: Moderate 6-25 bpm (Marck Mccarthy RN) Accelerations: 15X15 (Marck Mccarthy RN) Decelerations: None (Marck Mccarthy RN) Pain Scale: 3 (Marck Mccarthy RN) Pain Presence: Intermittent (Marck Mccarthy RN) Pain Type: Contraction (Marck Mccarthy RN) Pain Location: Abdomen (Marck Mccarthy RN) Pain Relief Measures: Comfort Measures (Marck Mccarthy RN) Pain Coping: Talking Through Contractions; Declines Medication or Epidural (Marck Mccarthy RN) Comfort Measures: Breathing/Relaxation (Marck Mccarthy RN) Communication: RN at Bedside; RN Reviewed Strip (Marck Mccarthy RN) Datetime: 10/22/2016 12:09 Pitocin (milliunit): Pitocin Increased to (milliunits) @ 4 (Marck Mccarthy, RN) Datetime: 10/22/2016 12:04 Dilatation (cm): 3.5 (Marck Mccarthy, RN) Effacement (%): 60 (Marck Mccarthy, WIL) Station: -1 (Marck Mccarthy, WIL) Exam by: Russ Santiago CNM (Marck Mccarthy, RN) Membrane Status: Ruptured (Marck Mccarthy, RN) Membranes Rupture Method: Artificial (Marck Mccarthy, RN) Amniotic Fluid Color: Clear (Marck Riggseet, RN) Amniotic Fluid Amount: Small (Marck Shari, RN) Datetime: 10/22/2016 12:01 Communication Comments: Russ Santiago CNM at bedside to assess pt (Marck Mccarthy, RN) Datetime: 10/22/2016 12:00 Monitor Mode: External; Palpation (Marck Mccarthy RN) Frequency (min): 2-4 (Marck Mccarthy RN) Quality: Moderate (Marck Mccarthy RN) Duration (sec): 70-90 (Marck Mccarthy RN) Duration Criteria: Less than Two 120 Second Contractions (Marck Mccarthy RN) Pattern: Normal: <= 5 Contractions in 10 Minutes (Marck Mccarthy RN) Resting Tone (Palpate): Relaxed (Marck Mccarthy RN) Monitor Mode: External US (Marck Mccarthy RN) FHR Baseline Rate : 130 (Marck Mccarthy RN) Variability: Moderate 6-25 bpm (Marck Mccarthy RN) Accelerations: 15X15 (Marck Mccarthy RN) Decelerations: None (Marck Mccarthy RN) Communication: RN at Bedside; RN Reviewed Strip (Marck Mccarthy RN)
[2016-10-22] MEDS ORDERED: EPHEDRINE SULFATE INJ 50 MG/1 ML AMPULE ONE (14:06)
[2016-10-22] MEDS ORDERED: FENTANYL/BUPIVACAINE/NS/PF 200 MCG/100 ML RTUINJ EPI ONE (14:06)
[2016-10-22] MEDS ORDERED: BUPIVACAINE HCL 0.25 % INJ/PF (2.5 MG/1 ML) 30 ML VIAL ONE (14:07)
[2016-10-22] MEDS ORDERED: MISOPROSTOL 0.2 MG TABLET ONE (15:52)
[2016-10-22] MEDS ORDERED: LIDOCAINE 1% INJ-PF (10 MG/ML) 30 ML SDV ONE (15:52)
--- NOTE | 2016-10-22 16:01 | L&D Flow Sheet ---
LD Flowsheet Datetime Report Generated by CPN: 10/22/2016 16:00 Datetime: 10/22/2016 15:58 Monitor Interventions for UA: [place] Adjusted (Marck Shari, RN) Monitor Interventions for FHR: Ultrasound Adjusted (Marck Shari, RN) Patient Position/Activity: Right Lateral; Peanut Ball (Mrack Shari, RN) Datetime: 10/22/2016 15:47 NBP Sys/Rebekah/Mean (mmHg): 118 (QS system process) : 76 (QS system process) : 90 (QS system process) Pulse: 100 (QS system process) Datetime: 10/22/2016 15:45 Monitor Mode: External; Palpation (Marck Mccarthy RN) Frequency (min): 1.5-3.5 (Marck Mccarthy RN) Quality: Moderate to Strong (Marck Mccarthy RN) Duration (sec): 80-100 (Marck Mccarthy RN) Resting Tone (Palpate): Relaxed (Marck Mccarthy RN) Monitor Mode: External US (Marck Mccarthy RN) FHR Baseline Rate : 120 (Marck Mccarthy RN) Variability: Moderate 6-25 bpm (Marck Mccarthy RN) Accelerations: 15X15 (Marck Mccarthy RN) Decelerations: Variable; Prolonged (Marck Mccarthy RN) Pitocin (milliunit): Pitocin Remains (milliunits) @ 10 (Marck Mccarthy RN) Preparation for Delivery: Setup for Delivery (Marck Mccrathy RN) Communication: RN at Bedside; RN Reviewed Strip (Marck Mccarthy RN) Datetime: 10/22/2016 15:44 Patient Position/Activity: Left Tilt; Tailors (Marck Shari, RN) Datetime: 10/22/2016 15:41 Dilatation (cm): 9.5 (Marck Shari, RN) Effacement (%): 100 (Marck Shari, RN) Station: 0 (Marck Shari, RN) Exam by: K Santiago CNM (Marck Shari, RN) Datetime: 10/22/2016 15:40 Communication Comments: K Santiago CNM at bedside to assess pt (Marck Shari, RN) Datetime: 10/22/2016 15:33 Pitocin (milliunit): Pitocin Increased to (milliunits) @ 10 (Marck Shari, RN) Datetime: 10/22/2016 15:31 NBP Sys/Rebekah/Mean (mmHg): 107 (QS system process) : 52 (QS system process) : 75 (QS system process) Pulse: 100 (QS system process) Datetime: 10/22/2016 15:30 Monitor Mode: External; Palpation (Marck Shari, RN) Frequency (min): 4-5 (Marck Shari, RN) Quality: Moderate to Strong (Marck Shari, RN) Duration (sec): 60-90 (Marck Shari, RN) Resting Tone (Palpate): Relaxed (Marck Shari, RN) Monitor Mode: External US (Marck Shari, RN) FHR Baseline Rate : 120 (Marck Shari, RN) Variability: Moderate 6-25 bpm (Marck Shari, RN) Accelerations: 15X15 (Marck Shari, RN) Decelerations: Variable (Marck Shari, RN) Communication: RN at Bedside; RN Reviewed Strip (Marck Riggseet, RN) Datetime: 10/22/2016 15:27 Monitor Interventions for UA: [place] Adjusted (Marck Shari, RN) Datetime: 10/22/2016 15:26 Patient Care Comments: LR 125ml/hr (Marck Shari, RN) Datetime: 10/22/2016 15:24 Monitor Interventions for UA: [place] Adjusted (Marck Riggseet, RN) Monitor Interventions for FHR: Ultrasound Adjusted (Marck Toneyfleet, RN) Patient Position/Activity: Right Lateral; Peanut Ball (Marck Riggseet, RN) Datetime: 10/22/2016 15:18 Monitor Interventions for FHR: Ultrasound Adjusted (Marck Riggseet, RN) Datetime: 10/22/2016 15:16 NBP Sys/Rebekah/Mean (mmHg): 108 (QS system process) : 53 (QS system process) : 77 (QS system process) Pulse: 76 (QS system process) Datetime: 10/22/2016 15:15 Monitor Mode: External; Palpation (Marck Mccarthy, RN) Frequency (min): 2-3 (Marck Mccarthy, RN) Quality: Moderate to Strong (Marck Shari, RN) Duration (sec): 60-90 (Marck Tesfayet, RN) Duration Criteria: Less than Two 120 Second Contractions (Marck Mccarthy, RN) Pattern: Normal: <= 5 Contractions in 10 Minutes (Marck Riggseet, RN) Resting Tone (Palpate): Relaxed (Marck Mccarthy, RN) Monitor Mode: External US (Marck Mccarthy, RN) FHR Baseline Rate : 130 (Mrack Shari, RN) Variability: Moderate 6-25 bpm (Marck Shari, RN) Accelerations: 15X15 (Marck Shari, RN) Decelerations: Late (Marck Riggseet, RN) Pitocin (milliunit): Pitocin Remains (milliunits) @ 8 (Marck Mccarthy, RN) Communication: RN at Bedside; RN Reviewed Strip (Marck Mccarthy, RN) Datetime: 10/22/2016 15:11 NBP Sys/Rebekah/Mean (mmHg): 107 (QS system process) : 62 (QS system process) : 74 (QS system process) Pulse: 71 (QS system process) Datetime: 10/22/2016 15:08 Pulse: 81 (QS system process) SpO2 (%): 98 (QS system process) Datetime: 10/22/2016 15:07 Patient Position/Activity: Left Lateral; Peanut Ball (Marck Shari, RN) Datetime: 10/22/2016 15:06 NBP Sys/Rebekah/Mean (mmHg): 108 (QS system process) : 53 (QS system process) : 74 (QS system process) Pulse: 73 (QS system process) Strip Reviewed by: Russ Santiago CNM (Marck Mccarthy RN) Communication Comments: Russ Santiago CNM at bedside to assess pt; notified of medications given and interventions (Marck Mccarthy, RN) Datetime: 10/22/2016 15:05 Monitor Interventions for UA: [place] Adjusted (Marck Shari, RN) Datetime: 10/22/2016 15:04 Anesthesia Interventions Other: Ephedrine (Marck Riggseet, RN) Datetime: 10/22/2016 15:03 Pulse: 77 (QS system process) Pulse: 106 (QS system process) SpO2 (%): 98 (QS system process) SpO2 (%): 93 (QS system process) Datetime: 10/22/2016 15:02 Patient Position/Activity: Right Lateral (Marck Shari, RN) Anesthesia Interventions Other: Ephedrine (Marck Shari, RN) Datetime: 10/22/2016 15:01 NBP Sys/Rebekah/Mean (mmHg): 104 (QS system process) : 53 (QS system process) : 75 (QS system process) Pulse: 84 (QS system process) Datetime: 10/22/2016 15:00 Monitor Mode: External; Palpation (Marck Mccarthy RN) Frequency (min): 2-3 (Marck Mccarthy RN) Quality: Moderate to Strong (Marck Mccarthy RN) Duration (sec): 70-100 (Marck Mccarthy RN) Duration Criteria: Less than Two 120 Second Contractions (Marck Mccarthy RN) Pattern: Normal: <= 5 Contractions in 10 Minutes (Mrack Mccarthy RN) Resting Tone (Palpate): Relaxed (Marck Mccarthy RN) Monitor Mode: External US (Marck Mccarthy RN) FHR Baseline Rate : 130 (Marck Mccarthy RN) Variability: Moderate 6-25 bpm (Marck Mccarthy RN) Accelerations: 15X15 (Marck Mccarthy RN) Decelerations: Late; Variable (Marck Mccarthy RN) Pain Scale: 3 (Marck Mccarthy RN) Pain Presence: Intermittent (Marck Mccarthy RN) Pain Type: Pressure (Marck Mccarthy RN) Pain Location: Perineum (Marck Mccarthy RN) Pain Relief Measures: Epidural Given; Comfort Measures (Marck Mccarthy RN) Pain Coping: Talking Through Contractions (Marck Mccarthy RN) Patient Position/Activity: Left Lateral (Marck Mccarthy RN) Comfort Measures: Breathing/Relaxation (Marck Mccarthy RN) Communication: RN at Bedside; RN Reviewed Strip (Marck Mccarthy RN) Datetime: 10/22/2016 14:59 Dilatation (cm): 5.0 (Marck Mccarthy, RN) Effacement (%): 80 (Marck Mccarthy, RN) Station: -1 (Marck Mccarthy, RN) Exam by: S Shari RN (Marck Mccarthy, RN) Vaginal Bleeding: None (Marck Mccarthy, WIL) Cervix, Consistency: Soft (Marck Mccarthy RN) Cervix, Position: Midposition (Marck Mccarthy, WIL) Datetime: 10/22/2016 14:58 Pulse: 89 (QS system process) SpO2 (%): 97 (QS system process) Datetime: 10/22/2016 14:56 NBP Sys/Rebekah/Mean (mmHg): 117 (QS system process) : 54 (QS system process) : 78 (QS system process) Pulse: 93 (QS system process) I/O Interventions: [place] Cath Inserted (Marck Mccarthy RN) Patient Care Comments: by A Maddie PHYSICAL EDUCATION AIDE; pt tolerated well, clear yellow urine output, 14F (Marck Mccarthy RN) Datetime: 10/22/2016 14:55 NBP Sys/Rebekah/Mean (mmHg): 115 (QS system process) : 56 (QS system process) : 80 (QS system process) Pulse: 77 (QS system process) Datetime: 10/22/2016 14:54 NBP Sys/Rebekah/Mean (mmHg): 107 (QS system process) : 53 (QS system process) : 74 (QS system process) Pulse: 88 (QS system process) Monitor Interventions for UA: [place] Adjusted (Marck Mccarthy RN) Monitor Interventions for FHR: Ultrasound Adjusted (Marck Mccarthy RN) Datetime: 10/22/2016 14:53 Pulse: 91 (QS system process) Pulse: 104 (QS system process) SpO2 (%): 98 (QS system process) SpO2 (%): 83 (QS system process) Datetime: 10/22/2016 14:52 Patient Position/Activity: Left Tilt (Marck Riggseet, RN) Anesthesia Level Check: T10- Umbilicus (Marck Mccarthy, RN) Datetime: 10/22/2016 14:51 NBP Sys/Rebekah/Mean (mmHg): 96 (QS system process) : 73 (QS system process) : 80 (QS system process) Pulse: 100 (QS system process) Datetime: 10/22/2016 14:50 NBP Sys/Rebekah/Mean (mmHg): 107 (QS system process) : 56 (QS system process) : 76 (QS system process) Pulse: 98 (QS system process) Datetime: 10/22/2016 14:49 NBP Sys/Rebekah/Mean (mmHg): 111 (QS system process) : 59 (QS system process) : 76 (QS system process) Pulse: 100 (QS system process) Epidural Procedure: Loading Dose (Marck Shari, RN) Datetime: 10/22/2016 14:48 NBP Sys/Rebekah/Mean (mmHg): 111 (QS system process) : 60 (QS system process) : 80 (QS system process) Pulse: 88 (QS system process) Pulse: 90 (QS system process) SpO2 (%): 95 (QS system process) Epidural Procedure: Cath Placed (Marck Tesfayet, RN) Datetime: 10/22/2016 14:47 Pulse: 92 (QS system process) SpO2 (%): 92 (QS system process) Epidural Procedure: Test Dose (Marck Riggseet, RN) Datetime: 10/22/2016 14:45 Monitor Mode: External; Palpation (Marck Riggseet, RN) Frequency (min): 1.5-3 (Marck Riggseet, RN) Quality: Moderate to Strong (Marck Riggseet, RN) Duration (sec): 60-90 (Marck Riggseet, RN) Resting Tone (Palpate): Relaxed (Marck Mccarthy RN) Monitor Mode: External US (Marck Mccarthy RN) FHR Baseline Rate : 130 (Marck Mccarthy RN) Variability: Moderate 6-25 bpm (Marck Mccarthy RN) Accelerations: 10X10 (Marck Mccarthy RN) Decelerations: Early (Marck Mccarthy RN) Pitocin (milliunit): Pitocin Remains (milliunits) @ 8 (Marck Mccarthy RN) Communication: RN at Bedside; RN Reviewed Strip (Marck Mccarthy RN) Datetime: 10/22/2016 14:43 Pulse: 89 (QS system process) SpO2 (%): 100 (QS system process) Datetime: 10/22/2016 14:41 NBP Sys/Rebekah/Mean (mmHg): 110 (QS system process) : 60 (QS system process) : 78 (QS system process) Pulse: 83 (QS system process) Pulse: 84 (QS system process) SpO2 (%): 91 (QS system process) Anesthesia Comments: RN remains continuously at bedside to attempt to continuously monitor fht and pt. (Marck Mccarthy RN) Datetime: 10/22/2016 14:38 Pulse: 84 (QS system process) SpO2 (%): 100 (QS system process) Datetime: 10/22/2016 14:37 Procedure Verify: Correct Patient Identity; Correct Side and Site are Marked; Accurate Procedure Consent Form; Agreement on Procedure to be Done; Correct Patient Position; Relevant Images and Results are Properly Labeled and Displayed; Addressed Need to Administer Antibiotics or Fluids for Irrigation; Safety Precautions Based on Patient History or Medication Use (Marck Mccarthy RN) Anesthesia Plans: Epidural (Marck Mccarthy RN) Epidural Positioning: Sitting (Marck Mccarthy RN) Anesthesia Comments: Dr Dunn at bedside to obtain consent for anesthesia and epidural placement. (Marck Mccarthy RN) Datetime: 10/22/2016 14:34 Pulse: 112 (QS system process) SpO2 (%): 92 (QS system process) Datetime: 10/22/2016 14:33 Pulse: 106 (QS system process) SpO2 (%): 95 (QS system process) Datetime: 10/22/2016 14:32 Procedure Verify: Correct Patient Identity; Correct Side and Site are Marked; Accurate Procedure Consent Form; Agreement on Procedure to be Done; Correct Patient Position; Relevant Images and Results are Properly Labeled and Displayed; Addressed Need to Administer Antibiotics or Fluids for Irrigation; Safety Precautions Based on Patient History or Medication Use (Marck Mccarthy RN) Anesthesia Plans: Epidural (Marck Mccarthy RN) Epidural Positioning: Sitting (Marck Shari, RN) Datetime: 10/22/2016 14:30 Monitor Mode: External; Palpation (Marck Mccarthy RN) Frequency (min): 1-4 (Marck Mccarthy, RN) Quality: Moderate to Strong (Marck Mccarthy, RN) Duration (sec): 80-100 (Marck Mccarthy, RN) Resting Tone (Palpate): Relaxed (Marck Mccarthy RN) Contraction Comments: Coupleting noted (Marck Mccarthy, RN) Monitor Mode: External US (Marck Mccarthy, RN) FHR Baseline Rate : 125 (Marck Tesfayet, RN) Variability: Moderate 6-25 bpm (Marck Shari, RN) Accelerations: None (Marck Shari, RN) Decelerations: Early (Marck Mccarthy, RN) Communication: RN at Bedside; RN Reviewed Strip (Marck Mccarthy, RN) Datetime: 10/22/2016 14:28 I/O Interventions: Up to BR (Marck Shari, RN) Datetime: 10/22/2016 14:24 IV/Blood Work: New IV Bag Hung (Marck Riggseet, RN) Anesthesia Comments: Dr Shaun called for epidural (Marck Riggseet, RN) Datetime: 10/22/2016 14:23 NBP Sys/Rebekah/Mean (mmHg): 126 (QS system process) : 76 (QS system process) : 95 (QS system process) Pulse: 73 (QS system process) Datetime: 10/22/2016 14:15 Monitor Mode: External; Palpation (Marck Mccarthy RN) Frequency (min): 1-2.5 (Marck Mccarthy RN) Quality: Moderate to Strong (Marck Mccarthy RN) Duration (sec): 80-100 (Marck Mccarthy RN) Resting Tone (Palpate): Relaxed (Marck Mccarthy RN) Monitor Mode: External US (Marck Mccarthy RN) FHR Baseline Rate : 125 (Marck Mccarthy, RN) Variability: Moderate 6-25 bpm (Marck Mccarthy, RN) Accelerations: 10X10 (Marck Mccarthy RN) Decelerations: Early (Marck Mccarthy RN) Pitocin (milliunit): Pitocin Remains (milliunits) @ 8 (Marck Mccarthy RN) Communication: RN at Bedside; RN Reviewed Strip (Marck Mccarthy RN) Datetime: 10/22/2016 14:08 NBP Sys/Rebekah/Mean (mmHg): 116 (QS system process) : 67 (QS system process) : 87 (QS system process) Pulse: 60 (QS system process) Datetime: 10/22/2016 14:05 Pain Scale: 4 (Marck Mccarthy RN) Pain Presence: Intermittent (Marck Mccarthy RN) Pain Type: Contraction (Marck Mccarthy RN) Pain Location: Abdomen (Marck Mccarthy RN) Pain Relief Measures: Comfort Measures (Marck Mccarthy RN) Pain Coping: Breathing Through Contractions; Requesting Pain Medication or Epidural (Marck Mccarthy RN) IV/Blood Work: IV Bolus Started (Marck Mccarthy RN) Comfort Measures: Breathing/Relaxation (Marck Mccarthy RN) Provider Reviewed Strip: Yes (Marck Mccarthy RN) Strip Reviewed by: Jack GREENBERG (Marck Mccarthy RN) Procedure Verify: Correct Patient Identity; Correct Side and Site are Marked; Accurate Procedure Consent Form; Agreement on Procedure to be Done; Relevant Images and Results are Properly Labeled and Displayed; Addressed Need to Administer Antibiotics or Fluids for Irrigation; Safety Precautions Based on Patient History or Medication Use (Marck Mccarthy RN) Anesthesia Plans: Epidural (Marck Mccarthy RN) Pain Management: Epidural (Marck Mccarthy RN) Communication Comments: Russ Santiago CNM at bedside to assess pt; pt requesting epidrual, provider states pt may have epidrual now. (Marck Mccarthy RN) Datetime: 10/22/2016 14:00 Monitor Mode: External; Palpation (Marck Mccarthy RN) Frequency (min): 2-5 (Marck Mccarthy RN) Quality: Moderate (Marck Mccarthy RN) Duration (sec): 80-100 (aMrck Mccarthy RN) Duration Criteria: Less than Two 120 Second Contractions (Marck Mccarthy RN) Pattern: Normal: <= 5 Contractions in 10 Minutes (Marck Mccarthy RN) Resting Tone (Palpate): Relaxed (Marck Mccarthy RN) Monitor Mode: External US (Marck Mccarthy RN) FHR Baseline Rate : 130 (Marck Mccarthy RN) Variability: Moderate 6-25 bpm (Marck Mccarthy RN) Accelerations: 15X15 (Marck Mccarthy RN) Decelerations: None (Marck Mccarthy RN) Pitocin (milliunit): Pitocin Remains (milliunits) @ 8 (Marck Mccarthy RN) Communication: RN at Bedside; RN Reviewed Strip (Marck Mccarthy RN)
[2016-10-22] MEDS ORDERED: ACETAMINOPHEN WITH CODEINE #3 TABLET PO PRN ×2 (16:54)
[2016-10-22] MEDS ORDERED: MEASLES,MUMPS&RUBELLA VACC/PF 0.5 ML VIAL SUBCUT PRN (16:54)
[2016-10-22] MEDS ORDERED: DIPH/PERTUSS(ACELL)/TETANUS VAC/PF 0.5 ML SYR (>=10YO) IM PRN (16:54)
[2016-10-22] MEDS ORDERED: BENZOCAINE/MENTHOL AEROSOL SPRAY 56 ML TOP PRN (16:54)
[2016-10-22] MEDS ORDERED: ZOLPIDEM TARTRATE 5 MG TABLET PO PRN (16:54)
[2016-10-22] MEDS ORDERED: DIBUCAINE 1% OINTMENT 28 GM TP PRN (16:54)
--- NOTE | 2016-10-22 18:00 | L&D Flow Sheet ---
LD Flowsheet Datetime Report Generated by CPN: 10/22/2016 18:00 Datetime: 10/22/2016 17:47 NBP Sys/Rebekah/Mean (mmHg): 113 (QS system process) : 64 (QS system process) : 85 (QS system process) Pulse: 94 (QS system process) Datetime: 10/22/2016 17:32 NBP Sys/Rebekah/Mean (mmHg): 119 (QS system process) : 71 (QS system process) : 89 (QS system process) Pulse: 111 (QS system process) Datetime: 10/22/2016 17:17 NBP Sys/Rebekah/Mean (mmHg): 106 (QS system process) : 61 (QS system process) : 79 (QS system process) Pulse: 86 (QS system process) Datetime: 10/22/2016 17:02 NBP Sys/Rebekah/Mean (mmHg): 114 (QS system process) : 77 (QS system process) : 86 (QS system process) Pulse: 90 (QS system process) Datetime: 10/22/2016 17:00 Stage of : Recovery (Marck Shari, RN) Respirations: 16 (Marck Shari, RN) Temperature (F): 97.5 (Marck Shari, RN) Temperature (C): 36.4 (QS system process) Pain Scale: 0 (Marck Shari, RN) Pain Presence: None/Denies (Marck Shari, RN) Datetime: 10/22/2016 16:46 NBP Sys/Rebekah/Mean (mmHg): 92 (QS system process) : 61 (QS system process) : 72 (QS system process) Pulse: 79 (QS system process) Datetime: 10/22/2016 16:44 Anesthesia Comments: Epidural off (Marck Shari, RN) Datetime: 10/22/2016 16:43 Stage 2 Comments: Pitocin 20 units/1000ml NSS infusing after delivery of placenta. (Marck Shari, RN) Datetime: 10/22/2016 16:34 NBP Sys/Rebekah/Mean (mmHg): 102 (QS system process) : 55 (QS system process) : 75 (QS system process) Pulse: 99 (QS system process) Datetime: 10/22/2016 16:32 NBP Sys/Rebekah/Mean (mmHg): 194 (QS system process) : 124 (QS system process) : 149 (QS system process) Pulse: 120 (QS system process) Datetime: 10/22/2016 16:25 Stage 2 Comments: Provider to remain at bedside to deliver placenta, asses and repair any lacerations, and to complete first fundal rub (Marck Shari, RN) Datetime: 10/22/2016 16:18 Pitocin (milliunit): Pitocin Discontinued (Marck Shari, RN) Datetime: 10/22/2016 16:16 NBP Sys/Rebekah/Mean (mmHg): 122 (QS system process) : 61 (QS system process) : 85 (QS system process) Pulse: 97 (QS system process) Datetime: 10/22/2016 16:09 Pushing Position: Pushing with Contractions; Pushing Lithotomy (Marck Shari, RN) Datetime: 10/22/2016 16:06 Dilatation (cm): 10.0 (Marck Riggseet, RN) Effacement (%): 100 (Marck Tesfayet, RN) Station: 1 (Marck Mccarthy, RN) Exam by: Russ Santiago CN (Marck Riggseet, RN) Vaginal Bleeding: Normal Show (Marck Toneyfleet, RN) Pushing: Coached on Pushing; Urge to Push (Marck Shari, RN) Datetime: 10/22/2016 16:04 Pain Scale: 5 (Marck Mccarthy RN) Pain Presence: Constant (Marck Mccarthy RN) Pain Type: Pressure (Marck Mccarthy RN) Communication Comments: K Jack CNM at bedside (Marck Mccarthy RN) Datetime: 10/22/2016 16:02 NBP Sys/Rebekah/Mean (mmHg): 129 (QS system process) : 60 (QS system process) : 86 (QS system process) Pulse: 109 (QS system process)
--- NOTE | 2016-10-22 18:19 | Admission Physical ---
Datetime Report Generated by CPN: 10/22/2016 18:19 CURRENT ADMISSION Chief Complaint: Scheduled Induction of Labor Indication for Induction: Maternal Diabetes Admit Plan: Admit to Unit; Initiate Labor Induction Protocol ALLERGIES Medication Allergies: No Medication Allergies: No Known Allergies (10/22/2016) Medication Allergies: No Known Allergies (10/09/2016) Medication Allergies: No Known Allergies (09/21/2016) Medication Allergies: No Known Allergies (06/24/2014) Latex: No Latex Allergies Food Allergies: N/A Environmental Allergies: N/A OBSTETRICAL HISTORY EDC: 10/28/2016 00:00 : 3 Para: 2 Term: 2 : 0 SAB: 0 IAB: 0 Ectopic: 0 Livin Cesareans: 0 VBACs: 0 Multiple Births: 0 Gestational Diabetes: Yes Rh Sensitization: No Incompetent Cervix: No EDDIE: No Infertility: No ART Treatment: No Uterine Anomaly: No IUGR: No Hx Previous C/S: No Macrosomia: No Hx Loss/Stillborn: No PIH: No Hx : No Placenta Previa/Abruption: No Depression/PP Depression: Yes PTL/PROM: No Post Hemorrhage: No Current Procedures: Ultrasound Obstetrical History Comments: G1: 2010 baby girl, 40 weeks, 6 hours labor, 6 lb 13 oz G2: 2013 baby boy, 40.6 weeks, 8 lb 7 oz G3: Current; GDM on Glyburide SEE RECORDS Alcohol: No Marijuana : No Cocaine: No Other Illicit Drugs: No Cigarettes: Former Smoker. [id number] MEDICAL HISTORY Diabetes: Yes Diabetes Type: Gestational Diabetes Blood Transfusion: No Pulmonary Disease (Asthma, TB): No Breast Disease: No Hypertension: No Metal Bending Machine Operator Surgery: No Heart Disease: No Hosp/Surgery: No Autoimmune Disorder: No Anesthetic Complications: No Kidney Disease: Yes Abnormal Pap Smear: Yes Neuro/Epilepsy: No Psychiatric Disorders: Yes Other Medical Diseases: Yes Hepatitis/Liver Disease: No Significant Family History: No Varicosities/Phlebitis: No Trauma/Violence : No Thyroid Dysfunction: No Medical History Comments: Diabetes: GDM on Glyburide psych: major depressive disorder Kidney: Born with 1 kidney Abnormal Pap: 2010 with colpo Other: Dislocated knee x2 INFECTIOUS HISTORY Gonorrhea: No Genital Herpes: No Chlamydia: No Tuberculosis: No Syphilis: No Hepatitis: No HIV/AIDS Exposure: No Rash or Viral Illness: No HPV: No PHYSICAL EXAM General: Normal HEENT: Deferred Neurologic: Normal Thyroid: Deferred Heart: Normal Lungs: Normal Breast: Deferred Back: Normal Abdomen: Normal Genitourinary Exam: Deferred Extremities: Normal DTRs: Normal Pelvic Type: Adequate Physical Exam Comments: Cervix per RN Vital Signs: Reviewed FETUS A EGA: 39.1 FHR- Baseline: 145 Variability: Marked >25bpm Decelerations: None Presentation: Vertex Admit Comment: BS 70 PLANS FOR LABOR AND DELIVERY Labor and Delivery: None Pain Management: Natural Feeding Preference: Breast Benefit of Breast Feed Discussed: Yes Circumcision: Yes INFORMED CONSENT Assignment: Elisabeth Patterson MD Signature: with User ID: Pat : with User ID: Pat
--- NOTE | 2016-10-22 19:01 | L&D Flow Sheet ---
LD Flowsheet Datetime Report Generated by CPN: 10/22/2016 19:00 Datetime: 10/22/2016 18:15 Stage of : Recovery (Marck Shari, RN) Pain Presence: None/Denies (Marck Shari, RN) Datetime: 10/22/2016 18:00 Stage of : Recovery (Marck Shari, RN) Respirations: 18 (Marck Shari, RN) Pain Presence: None/Denies (Marck Shari, RN) Datetime: 10/22/2016 17:47 NBP Sys/Rebekah/Mean (mmHg): 113 (QS system process) : 64 (QS system process) : 85 (QS system process) Pulse: 94 (QS system process) Datetime: 10/22/2016 17:45 Stage of : Recovery (Marck Shari, RN) Pain Presence: None/Denies (Marck Shari, RN) Datetime: 10/22/2016 17:32 NBP Sys/Rebekah/Mean (mmHg): 119 (QS system process) : 71 (QS system process) : 89 (QS system process) Pulse: 111 (QS system process) Datetime: 10/22/2016 17:30 Stage of : Recovery (Marck Shari, RN) Pain Presence: None/Denies (Marck Shari, RN) Datetime: 10/22/2016 17:17 NBP Sys/Rebekah/Mean (mmHg): 106 (QS system process) : 61 (QS system process) : 79 (QS system process) Pulse: 86 (QS system process) Datetime: 10/22/2016 17:15 Stage of : Recovery (Marck Shari, RN) Respirations: 16 (Marck Shari, RN) Pain Presence: None/Denies (Marck Shari, RN) Datetime: 10/22/2016 17:02 NBP Sys/Rebekah/Mean (mmHg): 114 (QS system process) : 77 (QS system process) : 86 (QS system process) Pulse: 90 (QS system process) Datetime: 10/22/2016 17:00 Stage of : Recovery (Marck Shari, RN) Respirations: 16 (Marck Shari, RN) Temperature (F): 97.5 (Marck Shari, RN) Temperature (C): 36.4 (QS system process) Pain Scale: 0 (Marck Shari, RN) Pain Presence: None/Denies (Marck Shari, RN) Datetime: 10/22/2016 16:46 NBP Sys/Rebekah/Mean (mmHg): 92 (QS system process) : 61 (QS system process) : 72 (QS system process) Pulse: 79 (QS system process) Datetime: 10/22/2016 16:44 Anesthesia Comments: Epidural off (Marck Toneyfleet, RN) Datetime: 10/22/2016 16:43 Stage 2 Comments: Pitocin 20 units/1000ml NSS infusing after delivery of placenta. (Marck Toneyfleet, RN) Datetime: 10/22/2016 16:34 NBP Sys/Rebekah/Mean (mmHg): 102 (QS system process) : 55 (QS system process) : 75 (QS system process) Pulse: 99 (QS system process) Datetime: 10/22/2016 16:32 NBP Sys/Rebekah/Mean (mmHg): 194 (QS system process) : 124 (QS system process) : 149 (QS system process) Pulse: 120 (QS system process) Datetime: 10/22/2016 16:25 Stage 2 Comments: Provider to remain at bedside to deliver placenta, asses and repair any lacerations, and to complete first fundal rub (Marck Shari, RN) Datetime: 10/22/2016 16:18 Pitocin (milliunit): Pitocin Discontinued (Marck Toneyfleet, RN) Datetime: 10/22/2016 16:16 NBP Sys/Rebekah/Mean (mmHg): 122 (QS system process) : 61 (QS system process) : 85 (QS system process) Pulse: 97 (QS system process) Datetime: 10/22/2016 16:10 Monitor Mode: External US (Marck Mccarthy, RN) FHR Baseline Rate : 120 (Marck Shari, RN) Variability: Moderate 6-25 bpm (Marck Shari, RN) Accelerations: 15X15 (Marck Shari, RN) Decelerations: Variable (Marck Riggseet, RN) I/O Interventions: Mcderomtt Discontinued (Marck Riggseet, RN) Pushing Position: Pushing with Contractions (Marck Shari, RN) Datetime: 10/22/2016 16:09 Pushing Position: Pushing with Contractions; Pushing Lithotomy (Marck Shari, RN) Datetime: 10/22/2016 16:06 Dilatation (cm): 10.0 (Marck Riggseet, RN) Effacement (%): 100 (Marck Mccarthy, RN) Station: 1 (Marck Mccarthy, RN) Exam by: Russ Santiago CNM (Marck Toneyfleet, RN) Vaginal Bleeding: Normal Show (Marck Riggseet, RN) Pushing: Coached on Pushing; Urge to Push (Marck Mccarthy, RN) Datetime: 10/22/2016 16:04 Pain Scale: 5 (Marck [place]oney[place], RN) Pain Presence: Constant (Marck [place]oney[place], RN) Pain Type: Pressure (Marck Toney[place], RN) Communication Comments: Russ Santiago CNM at bedside (Marck Riggseet, RN) Datetime: 10/22/2016 16:02 NBP Sys/Rebekah/Mean (mmHg): 129 (QS system process) : 60 (QS system process) : 86 (QS system process) Pulse: 109 (QS system process) Datetime: 10/22/2016 16:00 Monitor Mode: External; Palpation (Marck Mccarthy RN) Frequency (min): 2-3 (Marck Mccarthy RN) Quality: Moderate to Strong (Marck Mccarthy RN) Duration (sec): 60-90 (Marck Mccarthy RN) Resting Tone (Palpate): Relaxed (Marck Mccarthy RN) Monitor Mode: External US (Marck Mccarthy RN) FHR Baseline Rate : 120 (Marck Mccarthy RN) Variability: Moderate 6-25 bpm (Marck Mccarthy RN) Accelerations: 10X10 (Marck Mccarthy RN) Decelerations: Early (Marck Mccarthy RN) Pitocin (milliunit): Pitocin Remains (milliunits) @ (Marck Mccatrhy RN) Communication: RN at Bedside; RN Reviewed Strip (Marck Mccarthy RN) Datetime: 10/22/2016 15:58 Monitor Interventions for UA: [place] Adjusted (Marck Mccarthy RN) Monitor Interventions for FHR: Ultrasound Adjusted (Marck Mccarthy RN) Patient Position/Activity: Right Lateral; Peanut Ball (Marck Mccarthy RN) Datetime: 10/22/2016 15:47 NBP Sys/Rebekah/Mean (mmHg): 118 (QS system process) : 76 (QS system process) : 90 (QS system process) Pulse: 100 (QS system process) Datetime: 10/22/2016 15:45 Monitor Mode: External; Palpation (Marck Mccarthy, RN) Frequency (min): 1.5-3.5 (Marck Mccarthy, RN) Quality: Moderate to Strong (Marck Mccarthy, RN) Duration (sec): 80-100 (Marck Mccarthy, RN) Resting Tone (Palpate): Relaxed (Marck Mccarthy, RN) Monitor Mode: External US (Marck Mccarthy, RN) FHR Baseline Rate : 120 (Marck Mccarthy, RN) Variability: Moderate 6-25 bpm (Marck Mccarthy, RN) Accelerations: 15X15 (Marck Mccarthy, RN) Decelerations: Variable; Prolonged (Marck Mccarthy, RN) Pitocin (milliunit): Pitocin Remains (milliunits) @ 10 (Mrack Mccarthy RN) Preparation for Delivery: Setup for Delivery (Marck Mccarthy RN) Communication: RN at Bedside; RN Reviewed Strip (Marck Mccarthy, RN) Datetime: 10/22/2016 15:44 Patient Position/Activity: Left Tilt; Tailors (Marck Riggseet, RN) Datetime: 10/22/2016 15:41 Dilatation (cm): 9.5 (Marck Mccarthy, RN) Effacement (%): 100 (Marck Mccarthy, RN) Station: 0 (Marck Mccarthy, RN) Exam by: Russ Santiago CNM (Marck Mccarthy, RN) Datetime: 10/22/2016 15:40 Communication Comments: K Santiago CNM at bedside to assess pt (Amrck Shari, RN) Datetime: 10/22/2016 15:33 Pitocin (milliunit): Pitocin Increased to (milliunits) @ 10 (Marck Shari, RN) Datetime: 10/22/2016 15:31 NBP Sys/Rebekah/Mean (mmHg): 107 (QS system process) : 52 (QS system process) : 75 (QS system process) Pulse: 100 (QS system process) Datetime: 10/22/2016 15:30 Monitor Mode: External; Palpation (Amrck Shari, RN) Frequency (min): 4-5 (Marck Shari, RN) Quality: Moderate to Strong (Marck Shari, RN) Duration (sec): 60-90 (Marck Shari, RN) Resting Tone (Palpate): Relaxed (Marck Shari, RN) Monitor Mode: External US (Marck Shari, RN) FHR Baseline Rate : 120 (Marck Shair, RN) Variability: Moderate 6-25 bpm (Marck Shari, RN) Accelerations: 15X15 (Marck Shari, RN) Decelerations: Variable (Marck Shari, RN) Communication: RN at Bedside; RN Reviewed Strip (Marck Shari, RN) Datetime: 10/22/2016 15:27 Monitor Interventions for UA: [place] Adjusted (Marck Shari, RN) Datetime: 10/22/2016 15:26 Patient Care Comments: LR 125ml/hr (Marck Shari, RN) Datetime: 10/22/2016 15:24 Monitor Interventions for UA: [place] Adjusted (Marck Shari, RN) Monitor Interventions for FHR: Ultrasound Adjusted (Marck Shari, RN) Patient Position/Activity: Right Lateral; Peanut Ball (Marck Shari, RN) Datetime: 10/22/2016 15:18 Monitor Interventions for FHR: Ultrasound Adjusted (Marck Shari, RN) Datetime: 10/22/2016 15:16 NBP Sys/Rebekah/Mean (mmHg): 108 (QS system process) : 53 (QS system process) : 77 (QS system process) Pulse: 76 (QS system process) Datetime: 10/22/2016 15:15 Monitor Mode: External; Palpation (Marck Mccarthy RN) Frequency (min): 2-3 (Marck Mccarthy RN) Quality: Moderate to Strong (Marck Mccarthy RN) Duration (sec): 60-90 (Marck Mccarthy RN) Duration Criteria: Less than Two 120 Second Contractions (Marck Mccarthy RN) Pattern: Normal: <= 5 Contractions in 10 Minutes (Marck Mccarthy RN) Resting Tone (Palpate): Relaxed (Marck Mccarthy RN) Monitor Mode: External US (Marck Mccarthy RN) FHR Baseline Rate : 130 (Marck Mccarthy RN) Variability: Moderate 6-25 bpm (Marck Mccarthy RN) Accelerations: 15X15 (Marck Mccarthy RN) Decelerations: Late (Marck Mccarthy RN) Pitocin (milliunit): Pitocin Remains (milliunits) @ 8 (Marck Mccarthy RN) Communication: RN at Bedside; RN Reviewed Strip (Marck Shari, RN) Datetime: 10/22/2016 15:11 NBP Sys/Rebekah/Mean (mmHg): 107 (QS system process) : 62 (QS system process) : 74 (QS system process) Pulse: 71 (QS system process) Datetime: 10/22/2016 15:08 Pulse: 81 (QS system process) SpO2 (%): 98 (QS system process) Datetime: 10/22/2016 15:07 Patient Position/Activity: Left Lateral; Peanut Ball (Marck Shari, RN) Datetime: 10/22/2016 15:06 NBP Sys/Rebekah/Mean (mmHg): 108 (QS system process) : 53 (QS system process) : 74 (QS system process) Pulse: 73 (QS system process) Strip Reviewed by: Russ Santiago CNM (Marck Shari, RN) Communication Comments: Russ Santiago CNM at bedside to assess pt; notified of medications given and interventions (Marck Shari, RN) Datetime: 10/22/2016 15:05 Monitor Interventions for UA: [place] Adjusted (Marck Shari, RN) Datetime: 10/22/2016 15:04 Anesthesia Interventions Other: Ephedrine (Marck Riggseet, RN) Datetime: 10/22/2016 15:03 Pulse: 77 (QS system process) Pulse: 106 (QS system process) SpO2 (%): 98 (QS system process) SpO2 (%): 93 (QS system process) Datetime: 10/22/2016 15:02 Patient Position/Activity: Right Lateral (Marck Shari, RN) Anesthesia Interventions Other: Ephedrine (Marck Shari, RN) Datetime: 10/22/2016 15:01 NBP Sys/Rebekah/Mean (mmHg): 104 (QS system process) : 53 (QS system process) : 75 (QS system process) Pulse: 84 (QS system process) Datetime: 10/22/2016 15:00 Monitor Mode: External; Palpation (Marck Mccarthy RN) Frequency (min): 2-3 (Marck Mccarthy RN) Quality: Moderate to Strong (Marck Mccarthy RN) Duration (sec): 70-100 (Marck Mccarthy RN) Duration Criteria: Less than Two 120 Second Contractions (Marck Mccarthy RN) Pattern: Normal: <= 5 Contractions in 10 Minutes (Marck Mccarthy RN) Resting Tone (Palpate): Relaxed (Marck Mccarthy RN) Monitor Mode: External US (Marck Mccarthy RN) FHR Baseline Rate : 130 (Marck Mccarthy RN) Variability: Moderate 6-25 bpm (Marck Mccarthy RN) Accelerations: 15X15 (Marck Mccarthy, WIL) Decelerations: Late; Variable (Marck Mccarthy RN) Pain Scale: 3 (Marck Mccarthy RN) Pain Presence: Intermittent (Marck Mccarthy RN) Pain Type: Pressure (Marck Mccarthy RN) Pain Location: Perineum (Marck Mccarthy RN) Pain Relief Measures: Epidural Given; Comfort Measures (Marck Mccarthy RN) Pain Coping: Talking Through Contractions (Marck Mccarthy RN) Patient Position/Activity: Left Lateral (Marck Mccarthy RN) Comfort Measures: Breathing/Relaxation (Marck Mccarthy RN) Communication: RN at Bedside; RN Reviewed Strip (Marck Mccarthy RN) Datetime: 10/22/2016 14:59 Dilatation (cm): 5.0 (Marck Mccarthy RN) Effacement (%): 80 (Marck Mccarthy RN) Station: -1 (Marck Mccarthy RN) Exam by: Carl Mccarthy RN (Marck Mccarthy RN) Vaginal Bleeding: None (Marck Mccarthy RN) Cervix, Consistency: Soft (Marck Mccarthy RN) Cervix, Position: Midposition (Marck Mccarthy RN) Datetime: 10/22/2016 14:58 Pulse: 89 (QS system process) SpO2 (%): 97 (QS system process) Datetime: 10/22/2016 14:56 NBP Sys/Rebekah/Mean (mmHg): 117 (QS system process) : 54 (QS system process) : 78 (QS system process) Pulse: 93 (QS system process) I/O Interventions: Mcdermott Cath Inserted (Marck Mccarthy RN) Patient Care Comments: by A Maddie MERRITTA; pt tolerated well, clear yellow urine output, 14F (Marck Mccarthy RN) Datetime: 10/22/2016 14:55 NBP Sys/Rebekah/Mean (mmHg): 115 (QS system process) : 56 (QS system process) : 80 (QS system process) Pulse: 77 (QS system process) Datetime: 10/22/2016 14:54 NBP Sys/Rebekah/Mean (mmHg): 107 (QS system process) : 53 (QS system process) : 74 (QS system process) Pulse: 88 (QS system process) Monitor Interventions for UA: [place] Adjusted (Marck Shari, RN) Monitor Interventions for FHR: Ultrasound Adjusted (Marck Shari, RN) Datetime: 10/22/2016 14:53 Pulse: 91 (QS system process) Pulse: 104 (QS system process) SpO2 (%): 98 (QS system process) SpO2 (%): 83 (QS system process) Datetime: 10/22/2016 14:52 Patient Position/Activity: Left Tilt (Marck Shari, RN) Anesthesia Level Check: T10- Umbilicus (Marck Shari, RN) Datetime: 10/22/2016 14:51 NBP Sys/Rebekah/Mean (mmHg): 96 (QS system process) : 73 (QS system process) : 80 (QS system process) Pulse: 100 (QS system process) Datetime: 10/22/2016 14:50 NBP Sys/Rebekah/Mean (mmHg): 107 (QS system process) : 56 (QS system process) : 76 (QS system process) Pulse: 98 (QS system process) Datetime: 10/22/2016 14:49 NBP Sys/Rebekah/Mean (mmHg): 111 (QS system process) : 59 (QS system process) : 76 (QS system process) Pulse: 100 (QS system process) Epidural Procedure: Loading Dose (Marck Shari, RN) Datetime: 10/22/2016 14:48 NBP Sys/Rebekah/Mean (mmHg): 111 (QS system process) : 60 (QS system process) : 80 (QS system process) Pulse: 88 (QS system process) Pulse: 90 (QS system process) SpO2 (%): 95 (QS system process) Epidural Procedure: Cath Placed (Marck Shari, RN) Datetime: 10/22/2016 14:47 Pulse: 92 (QS system process) SpO2 (%): 92 (QS system process) Epidural Procedure: Test Dose (Marck Shari, RN) Datetime: 10/22/2016 14:45 Monitor Mode: External; Palpation (Marck Tesfayet, RN) Frequency (min): 1.5-3 (Marck Mccarthy, RN) Quality: Moderate to Strong (Marck Mccarthy, RN) Duration (sec): 60-90 (Marck Tesfayet, RN) Resting Tone (Palpate): Relaxed (Marck Mccarthy, RN) Monitor Mode: External US (Marck Mccarthy, RN) FHR Baseline Rate : 130 (Marck Mccarthy, RN) Variability: Moderate 6-25 bpm (Marck Riggseet, RN) Accelerations: 10X10 (Marck Riggseet, RN) Decelerations: Early (Marck Mccarthy, RN) Pitocin (milliunit): Pitocin Remains (milliunits) @ 8 (Marck Mccarthy, RN) Communication: RN at Bedside; RN Reviewed Strip (Marck Mccarthy, WIL) Datetime: 10/22/2016 14:43 Pulse: 89 (QS system process) SpO2 (%): 100 (QS system process) Datetime: 10/22/2016 14:41 NBP Sys/Rebekah/Mean (mmHg): 110 (QS system process) : 60 (QS system process) : 78 (QS system process) Pulse: 83 (QS system process) Pulse: 84 (QS system process) SpO2 (%): 91 (QS system process) Anesthesia Comments: RN remains continuously at bedside to attempt to continuously monitor fht and pt. (Marck Mccarthy RN) Datetime: 10/22/2016 14:38 Pulse: 84 (QS system process) SpO2 (%): 100 (QS system process) Datetime: 10/22/2016 14:37 Procedure Verify: Correct Patient Identity; Correct Side and Site are Marked; Accurate Procedure Consent Form; Agreement on Procedure to be Done; Correct Patient Position; Relevant Images and Results are Properly Labeled and Displayed; Addressed Need to Administer Antibiotics or Fluids for Irrigation; Safety Precautions Based on Patient History or Medication Use (Marck Mccarthy RN) Anesthesia Plans: Epidural (Marck Mccarthy RN) Epidural Positioning: Sitting (Marck Mccarthy RN) Anesthesia Comments: Dr Dunn at bedside to obtain consent for anesthesia and epidural placement. (Marck Mccarthy RN) Datetime: 10/22/2016 14:34 Pulse: 112 (QS system process) SpO2 (%): 92 (QS system process) Datetime: 10/22/2016 14:33 Pulse: 106 (QS system process) SpO2 (%): 95 (QS system process) Datetime: 10/22/2016 14:32 Procedure Verify: Correct Patient Identity; Correct Side and Site are Marked; Accurate Procedure Consent Form; Agreement on Procedure to be Done; Correct Patient Position; Relevant Images and Results are Properly Labeled and Displayed; Addressed Need to Administer Antibiotics or Fluids for Irrigation; Safety Precautions Based on Patient History or Medication Use (Marck Mccarthy RN) Anesthesia Plans: Epidural (Marck Mccarthy RN) Epidural Positioning: Sitting (Marck Mccarthy RN) Datetime: 10/22/2016 14:30 Monitor Mode: External; Palpation (Marck Mccarthy RN) Frequency (min): 1-4 (Marck Mccarthy RN) Quality: Moderate to Strong (Marck Mccarthy RN) Duration (sec): 80-100 (Marck Mccarthy RN) Resting Tone (Palpate): Relaxed (Marck Mccarthy RN) Contraction Comments: Coupleting noted (Marck Mccarthy RN) Monitor Mode: External US (Marck Mccarthy RN) FHR Baseline Rate : 125 (Marck Mccarthy RN) Variability: Moderate 6-25 bpm (Marck Mccarthy RN) Accelerations: None (Marck Mccarthy RN) Decelerations: Early (Marck Mccarthy RN) Communication: RN at Bedside; RN Reviewed Strip (Marck Mccarthy RN) Datetime: 10/22/2016 14:28 I/O Interventions: Up to BR (Marck Riggseet, RN) Datetime: 10/22/2016 14:24 IV/Blood Work: New IV Bag Hung (Marck Riggseet, RN) Anesthesia Comments: Dr Shaun called for epidural (Marck Riggseet, RN) Datetime: 10/22/2016 14:23 NBP Sys/Rebekah/Mean (mmHg): 126 (QS system process) : 76 (QS system process) : 95 (QS system process) Pulse: 73 (QS system process) Datetime: 10/22/2016 14:15 Monitor Mode: External; Palpation (Marck Mccarthy RN) Frequency (min): 1-2.5 (Marck Mccarthy RN) Quality: Moderate to Strong (Marck Mccarthy, RN) Duration (sec): 80-100 (Marck Mccarthy, RN) Resting Tone (Palpate): Relaxed (Marck Mccarthy RN) Monitor Mode: External US (Marck Mccarthy, RN) FHR Baseline Rate : 125 (Marck Mccarthy, RN) Variability: Moderate 6-25 bpm (Marck Riggseet, RN) Accelerations: 10X10 (Marck Tesfayet, RN) Decelerations: Early (Marck Mccarthy, RN) Pitocin (milliunit): Pitocin Remains (milliunits) @ 8 (Marck Mccarthy, WIL) Communication: RN at Bedside; RN Reviewed Strip (Marck Mccarthy RN) Datetime: 10/22/2016 14:08 NBP Sys/Rebekah/Mean (mmHg): 116 (QS system process) : 67 (QS system process) : 87 (QS system process) Pulse: 60 (QS system process) Datetime: 10/22/2016 14:05 Pain Scale: 4 (Marck Mccarthy RN) Pain Presence: Intermittent (Marck Mccarthy RN) Pain Type: Contraction (Marck Mccarthy RN) Pain Location: Abdomen (Marck Mccarthy RN) Pain Relief Measures: Comfort Measures (Marck Mccarthy RN) Pain Coping: Breathing Through Contractions; Requesting Pain Medication or Epidural (Marck Mccarthy RN) IV/Blood Work: IV Bolus Started (Marck Mccarthy RN) Comfort Measures: Breathing/Relaxation (Marck Mccarthy RN) Provider Reviewed Strip: Yes (Marck Mccarthy RN) Strip Reviewed by: Jack GREENBERG (Marck Mccarthy RN) Procedure Verify: Correct Patient Identity; Correct Side and Site are Marked; Accurate Procedure Consent Form; Agreement on Procedure to be Done; Relevant Images and Results are Properly Labeled and Displayed; Addressed Need to Administer Antibiotics or Fluids for Irrigation; Safety Precautions Based on Patient History or Medication Use (Marck Mccarthy RN) Anesthesia Plans: Epidural (Marck Mccarthy RN) Pain Management: Epidural (Marck Mccarthy RN) Communication Comments: Russ Santiago CNM at bedside to assess pt; pt requesting epidrual, provider states pt may have epidrual now. (Marck Mccarthy RN) Datetime: 10/22/2016 14:00 Monitor Mode: External; Palpation (Marck Tesfayet, RN) Frequency (min): 2-5 (Marck Shari, RN) Quality: Moderate (Marck Shari, RN) Duration (sec): 80-100 (Marck Shari, RN) Duration Criteria: Less than Two 120 Second Contractions (Marck Shari, RN) Pattern: Normal: <= 5 Contractions in 10 Minutes (Marck Riggseet, RN) Resting Tone (Palpate): Relaxed (Marck Riggseet, RN) Monitor Mode: External US (Marck Tesfayet, RN) FHR Baseline Rate : 130 (Marck Shari, RN) Variability: Moderate 6-25 bpm (Marck Shari, RN) Accelerations: 15X15 (Marck Shari, RN) Decelerations: None (Marck Shari, RN) Pitocin (milliunit): Pitocin Remains (milliunits) @ 8 (Marck Mccarthy, RN) Communication: RN at Bedside; RN Reviewed Strip (Marck Mccarthy, RN) Datetime: 10/22/2016 13:53 NBP Sys/Rebekah/Mean (mmHg): 111 (QS system process) : 69 (QS system process) : 85 (QS system process) Pulse: 66 (QS system process) Temperature (F): 97.0 (Marck Mccarthy RN) Temperature (C): 36.1 (QS system process) Datetime: 10/22/2016 13:45 Monitor Mode: External; Palpation (Marck Mccarthy RN) Frequency (min): 1-4 (Marck Mccarthy RN) Quality: Moderate (Marck Mccarthy RN) Duration (sec): 70-100 (Marck Mccarthy RN) Duration Criteria: Less than Two 120 Second Contractions (Markc Mccarthy RN) Pattern: Normal: <= 5 Contractions in 10 Minutes (Marck Mccarthy RN) Resting Tone (Palpate): Relaxed (Marck Mccarthy RN) Monitor Mode: External US (Marck Mccarthy RN) FHR Baseline Rate : 135 (Marck Mccarthy RN) Variability: Moderate 6-25 bpm (Marck Mccarthy RN) Accelerations: Prolonged (Marck Mccarthy RN) Decelerations: None (Marck Mccarthy RN) Pitocin (milliunit): Pitocin Increased to (milliunits) @ 8 (Marck Mccarthy RN) Communication: RN at Bedside; RN Reviewed Strip (Markc Mccarthy RN) Datetime: 10/22/2016 13:38 NBP Sys/Rebekah/Mean (mmHg): 113 (QS system process) : 67 (QS system process) : 83 (QS system process) Pulse: 69 (QS system process) Datetime: 10/22/2016 13:35 Monitor Interventions for UA: [place] Adjusted (Marck Shari, RN) Monitor Interventions for FHR: Ultrasound Adjusted (Marck Shari, RN) Patient Position/Activity: Tailors (Marck Shari, RN) Datetime: 10/22/2016 13:33 Pain Scale: 4 (Marck Shari, RN) Pain Presence: Intermittent (Marck Mccarthy RN) Pain Type: Contraction (Marck Mccarthy RN) Pain Location: Abdomen (Marck Mccarthy RN) Pain Relief Measures: Comfort Measures (Marck Mccarthy RN) Pain Coping: Breathing Through Contractions; Declines Medication or Epidural (Marck Mccarthy RN) Dilatation (cm): 4.0 (Marck Mccarthy RN) Effacement (%): 60 (Marck Mccarthy RN) Station: -2 (Marck Mccarthy RN) Exam by: Carl Mccarthy RN (Marck Mccarthy RN) Cervix, Consistency: Moderate (Marck Mccartyh RN) Cervix, Position: Posterior (Marck Mccarthy RN) Vaginal Exam Comments: Russ Santiago CNM notified (Marck Mccarthy RN) Comfort Measures: Breathing/Relaxation; Family Support (Marck Mccarthy RN) Datetime: 10/22/2016 13:30 Monitor Mode: External; Palpation (Marck Mccarthy RN) Frequency (min): 2-3 (Marck Mccarthy RN) Quality: Moderate to Strong (Marck Mccarthy RN) Duration (sec): 70-90 (Marck Mccarthy RN) Resting Tone (Palpate): Relaxed (Marck Mccarthy RN) Monitor Mode: External US (Marck Mccarthy RN) FHR Baseline Rate : 130 (Marck Mccarthy RN) Variability: Moderate 6-25 bpm (Marck Mccarthy RN) Accelerations: 15X15 (Marck Shari, RN) Decelerations: None (Marck Shari, RN) Communication: RN at Bedside; RN Reviewed Strip (Marck Shari, RN) Datetime: 10/22/2016 13:29 Bedside Blood Glucose: 72 (QS system process) Datetime: 10/22/2016 13:25 Comfort Measures: Rocking Chair (Marck Shari, RN) Datetime: 10/22/2016 13:15 Respirations: 18 (Marck Mccarthy, WIL) Monitor Mode: External; Palpation (Marck Mccarthy, WIL) Frequency (min): 2-2.5 (Marck Mccarthy, WIL) Quality: Moderate (Marck Mccarthy RN) Duration (sec): 60-110 (Marck Mccarthy, RN) Duration Criteria: Less than Two 120 Second Contractions (Marck Mccarthy RN) Pattern: Normal: <= 5 Contractions in 10 Minutes (Marck Mccarthy RN) Resting Tone (Palpate): Relaxed (Marck Mccarthy, RN) Monitor Mode: External US (Marck Mccarthy RN) FHR Baseline Rate : 130 (Marck Mccarthy RN) FHR Baseline Changes: No Baseline Change (Marck Mccarthy RN) Variability: Moderate 6-25 bpm (Marck Mccarthy, RN) Accelerations: 15X15 (Markc Mccarthy, RN) Decelerations: Variable (Marck Mccarthy RN) Level of Consciousness: Fully Conscious (Marck Mccarthy RN) Headache: Denies (Marck Mccarthy RN) Nausea/Vomiting: Denies (Marck Mccarthy RN) RUQ Epigastric Pain: Denies (Marck Mccarthy RN) Communication: RN at Bedside; RN Reviewed Strip (Marck Mccarthy RN) Datetime: 10/22/2016 13:11 I/O Interventions: Up to BR (Marck Mccarthy RN) Datetime: 10/22/2016 13:08 NBP Sys/Rebekah/Mean (mmHg): 113 (QS system process) : 73 (QS system process) : 90 (QS system process) Pulse: 70 (QS system process) Datetime: 10/22/2016 13:00 Respirations: 16 (Marck Mccarthy, RN) Monitor Mode: External; Palpation (Marck Mccarthy, RN) Frequency (min): 1-4 (Marck Tesfayet, RN) Quality: Moderate (Marck Riggseet, RN) Duration (sec): 60-80 (Marck Riggseet, RN) Resting Tone (Palpate): Relaxed (Marck Riggseet, RN) FHR Baseline Rate : 130 (Marck Shari, RN) Variability: Moderate 6-25 bpm (Marck Shari, RN) Accelerations: 15X15 (Marck Shari, RN) Decelerations: Variable (Marck Riggseet, RN) Level of Consciousness: Fully Conscious (Marck Tesfayet, RN) Headache: Denies (Marck Mccarthy, RN) Nausea/Vomiting: Denies (Marck Mccarthy, RN) RUQ Epigastric Pain: Denies (Marck Mccarthy RN) Communication: RN at Bedside; RN Reviewed Strip (Mrack Mccarthy RN) Datetime: 10/22/2016 12:54 NBP Sys/Rebekah/Mean (mmHg): 113 (QS system process) : 85 (QS system process) : 96 (QS system process) Pulse: 66 (QS system process) Datetime: 10/22/2016 12:45 Monitor Mode: External; Palpation (Marck Mccarthy RN) Frequency (min): 1-4 (Marck Mccarthy RN) Quality: Moderate (Marck Mccarthy RN) Duration (sec): 60-90 (Marck Mccarthy RN) Duration Criteria: Less than Two 120 Second Contractions (Marck Mccarthy RN) Pattern: Normal: <= 5 Contractions in 10 Minutes (Marck Mccarthy RN) Resting Tone (Palpate): Relaxed (Marck Mccarthy RN) Contraction Comments: Coupling noted (Marck Mccarthy RN) Monitor Mode: External US (Marck Mccarthy RN) FHR Baseline Rate : 130 (Marck Mccarthy RN) FHR Baseline Changes: No Baseline Change (Marck Mccarthy RN) Variability: Moderate 6-25 bpm (Marck Mccarthy RN) Accelerations: 15X15 (Marck Mccarthy RN) Decelerations: None (Marck Mccarthy RN) Pain Scale: 3 (Marck Mccarthy RN) Pain Presence: Intermittent (Marck Mccarthy RN) Pain Type: Contraction (Marck Mccarthy RN) Pain Location: Abdomen (Marck Mccarthy RN) Pain Relief Measures: Comfort Measures (Marck Mccarthy RN) Pain Coping: Talking Through Contractions; Declines Medication or Epidural (Marck Mccarthy RN) Communication: RN at Bedside; RN Reviewed Strip (Marck Mccarthy RN) Datetime: 10/22/2016 12:43 Monitor Interventions for UA: [place] Adjusted (Marck Mccarthy RN) Monitor Interventions for FHR: Ultrasound Adjusted (Marck Mccarthy RN) Datetime: 10/22/2016 12:40 Pitocin (milliunit): Pitocin Increased to (milliunits) @ 6 (Marck Mccarthy RN) Patient Position/Activity: Right Lateral; Peanut Ball (Marck Mccarthy RN) Datetime: 10/22/2016 12:38 NBP Sys/Rebekah/Mean (mmHg): 112 (QS system process) : 69 (QS system process) : 86 (QS system process) Pulse: 70 (QS system process) Datetime: 10/22/2016 12:30 Respirations: 16 (Marck Mccarthy RN) Temperature (F): 98.5 (Marck Mccarthy RN) Temperature (C): 36.9 (QS system process) Monitor Mode: External; Palpation (Marck Mccarthy RN) Frequency (min): 1-5 (Marck Mccarthy RN) Quality: Moderate (Marck Mccarthy RN) Duration (sec): 70-100 (Marck Shari, RN) Duration Criteria: Less than Two 120 Second Contractions (Marck [place], RN) Pattern: Normal: <= 5 Contractions in 10 Minutes (Marck Shari, RN) Resting Tone (Palpate): Relaxed (Marck [place], RN) Monitor Mode: External US (Marck Shari, RN) FHR Baseline Rate : 130 (Marck Shari, RN) Variability: Moderate 6-25 bpm (Marck Shari, RN) Accelerations: 15X15 (Marck Shari, RN) Decelerations: None (Marck Shari, RN) Level of Consciousness: Fully Conscious (Marck Shari, RN) Headache: Denies (Marck Shari, RN) Nausea/Vomiting: Denies (Marck Shari, RN) Communication: RN at Bedside; RN Reviewed Strip (Marck Shari, RN) Datetime: 10/22/2016 12:23 NBP Sys/Rebekah/Mean (mmHg): 109 (QS system process) : 64 (QS system process) : 82 (QS system process) Pulse: 90 (QS system process) Datetime: 10/22/2016 12:15 Monitor Mode: External; Palpation (Marck Mccarthy RN) Frequency (min): 2-4 (Marck Mccarthy RN) Quality: Moderate (Marck Mccarthy RN) Duration (sec): 60-80 (Marck Mccarthy RN) Resting Tone (Palpate): Relaxed (Marck Mccarthy RN) Monitor Mode: External US (Marck Mccarthy RN) FHR Baseline Rate : 130 (Marck Mccarthy RN) Variability: Moderate 6-25 bpm (Marck Mccarthy RN) Accelerations: 15X15 (Marck Mcacrthy RN) Decelerations: None (Marck Mccarthy RN) Pain Scale: 3 (Marck Mccarthy RN) Pain Presence: Intermittent (Marck Mccarthy RN) Pain Type: Contraction (Marck Mccarthy RN) Pain Location: Abdomen (Marck Mccarthy RN) Pain Relief Measures: Comfort Measures (Marck Mccarthy RN) Pain Coping: Talking Through Contractions; Declines Medication or Epidural (Marck Mccarthy RN) Comfort Measures: Breathing/Relaxation (Marck Mccarthy RN) Communication: RN at Bedside; RN Reviewed Strip (Marck Mccarthy RN) Datetime: 10/22/2016 12:09 Pitocin (milliunit): Pitocin Increased to (milliunits) @ 4 (Marck Mccarthy RN) Datetime: 10/22/2016 12:04 Dilatation (cm): 3.5 (Marck Mccarthy RN) Effacement (%): 60 (Marck Mccarthy RN) Station: -1 (Marck Mccarthy RN) Exam by: Russ Santiago CNM (Marck Mccarthy RN) Membrane Status: Ruptured (Marck Mccarthy RN) Membranes Rupture Method: Artificial (Marck Mccarthy RN) Amniotic Fluid Color: Clear (Marck Mccarthy, WIL) Amniotic Fluid Amount: Small (Marck Mccarthy RN) Datetime: 10/22/2016 12:01 Communication Comments: Russ Santiago CNM at bedside to assess pt (Marck Mccarthy RN) Datetime: 10/22/2016 12:00 Monitor Mode: External; Palpation (Marck Shari, RN) Frequency (min): 2-4 (Marck Shari, RN) Quality: Moderate (Marck Shari, RN) Duration (sec): 70-90 (Marck Shari, RN) Duration Criteria: Less than Two 120 Second Contractions (Marck Shari, RN) Pattern: Normal: <= 5 Contractions in 10 Minutes (Marck Shari, RN) Resting Tone (Palpate): Relaxed (Marck Shari, RN) Monitor Mode: External US (Marck Shari, RN) FHR Baseline Rate : 130 (Marck Shari, RN) Variability: Moderate 6-25 bpm (Marck Shari, RN) Accelerations: 15X15 (Marck Shari, RN) Decelerations: None (Marck Shari, RN) Communication: RN at Bedside; RN Reviewed Strip (Marck Shari, RN) Datetime: 10/22/2016 11:53 NBP Sys/Rebekah/Mean (mmHg): 116 (QS system process) : 71 (QS system process) : 86 (QS system process) Pulse: 90 (QS system process) Datetime: 10/22/2016 11:45 Monitor Mode: External; Palpation (Marck Shari, RN) Frequency (min): 1.5-2.5 (Marck Shari, RN) Quality: Moderate (Marck Shari, RN) Duration (sec): 70-90 (Marck Shari, RN) Duration Criteria: Less than Two 120 Second Contractions (Marck Shari, RN) Resting Tone (Palpate): Relaxed (Marck Shari, RN) Monitor Mode: External US (Marck Riggseet, RN) FHR Baseline Rate : 135 (Marck Shari, RN) Variability: Moderate 6-25 bpm (Marck Shari, RN) Accelerations: 15X15 (Marck Shari, RN) Decelerations: None (Marck Shari, RN) Communication: RN at Bedside; RN Reviewed Strip (Marck Shari, RN) Datetime: 10/22/2016 11:42 Pitocin (milliunit): Pitocin Decreased to (milliunits) @ 2 (Marck Shari, RN) Datetime: 10/22/2016 11:41 Comfort Measures: Rocking Chair (Marck Mccarthy, RN) Datetime: 10/22/2016 11:30 Monitor Mode: External; Palpation (Marck Mccarthy RN) Frequency (min): 1-2 (Marck Mccarthy, RN) Quality: Moderate (Marck Mccarthy, RN) Duration (sec): 60-80 (Marck Mccarthy, RN) Resting Tone (Palpate): Relaxed (Marck Mccarthy, RN) Monitor Mode: External US (Marck Mccarthy, RN) FHR Baseline Rate : 140 (Marck Mccarthy, RN) Variability: Moderate 6-25 bpm (Marck Mccarthy, RN) Accelerations: 15X15 (Marck Mccarthy, RN) Decelerations: None (Marck Mccarthy, RN) Pain Scale: 3 (Marck Mccarthy, RN) Pain Presence: Intermittent (Marck Mccarthy, RN) Pain Type: Contraction (Marck Mccarthy, RN) Pain Location: Abdomen (Marck Mccarthy, RN) Pain Relief Measures: Comfort Measures (Marck Mccarthy RN) Pain Coping: Talking Through Contractions; Declines Medication or Epidural (Marck Mccarthy RN) Pitocin (milliunit): Pitocin Decreased to (milliunits) @ 4 (Marck Mccarthy RN) Medication Comments: Russ Santiago CNM notified of efm strip; decreased pitocin; provider reviewed strip. (Markc Mccarthy RN) Comfort Measures: Breathing/Relaxation (Marck Mccarthy RN) Communication: RN at Bedside; RN Reviewed Strip (Marck Mccarthy RN) Datetime: 10/22/2016 11:24 NBP Sys/Rebekah/Mean (mmHg): 117 (QS system process) : 72 (QS system process) : 90 (QS system process) Pulse: 78 (QS system process) Datetime: 10/22/2016 11:15 Monitor Mode: External; Palpation (Marck Mccarthy RN) Frequency (min): 1-2 (Marck Mccarthy RN) Quality: Moderate (Marck Shari, RN) Duration (sec): 70-90 (Marck Riggseet, RN) Resting Tone (Palpate): Relaxed (Marck Tesfayet, RN) Monitor Mode: External US (Marck Mccarthy, RN) FHR Baseline Rate : 140 (Marck Riggseet, RN) Variability: Moderate 6-25 bpm (Marck [place], RN) Accelerations: 15X15 (Marck Riggseet, RN) Decelerations: Variable (Marck Riggseet, RN) Communication: RN at Bedside; RN Reviewed Strip (Marck Mccarthy, RN) Datetime: 10/22/2016 11:09 NBP Sys/Rebekah/Mean (mmHg): 122 (QS system process) : 76 (QS system process) : 93 (QS system process) Pulse: 76 (QS system process) Datetime: 10/22/2016 11:03 Monitor Interventions for UA: [place] Adjusted (Marck Tesfayet, RN) Datetime: 10/22/2016 11:02 Monitor Interventions for UA: [place] Adjusted (Marck Mccarthy, WIL) Datetime: 10/22/2016 11:00 Monitor Mode: External; Palpation (Marck Mccarthy RN) Frequency (min): 1-4 (Marck Mccarthy RN) Quality: Moderate (Marck Mccarthy RN) Duration (sec): 60-70 (Marck Mccarthy RN) Duration Criteria: Less than Two 120 Second Contractions (Marck Mccarthy RN) Pattern: Normal: <= 5 Contractions in 10 Minutes (Marck Mccarthy RN) Resting Tone (Palpate): Relaxed (Marck Mccarthy RN) Contraction Comments: Coupling noted (Marck Mccarthy RN) Monitor Mode: External US (Marck Mccarthy RN) FHR Baseline Rate : 130 (Marck Mccarthy RN) Variability: Moderate 6-25 bpm (Marck Mccarthy RN) Accelerations: 15X15 (Marck Mccarthy RN) Decelerations: None (Marck Mccarthy RN) Communication: RN at Bedside; RN Reviewed Strip (Marck Shari, RN) Datetime: 10/22/2016 10:57 Patient Position/Activity: Hands-Knees (Marck Shari, RN) Datetime: 10/22/2016 10:53 I/O Interventions: Up to BR (Marck Shari, RN) Datetime: 10/22/2016 10:45 Monitor Mode: External; Palpation (Marck Shari, RN) Frequency (min): 1-5 (Marck Shari, RN) Quality: Moderate (Marck Mccarthy RN) Duration (sec): 60-80 (Marck Mccarthy RN) Resting Tone (Palpate): Relaxed (Marck Mccarthy RN) Monitor Mode: External US (Marck Mccarthy RN) FHR Baseline Rate : 140 (Marck Mccarthy RN) Variability: Moderate 6-25 bpm (Marck Mccarthy RN) Accelerations: None (Marck Mccarthy RN) Decelerations: None (Marck Mccarthy RN) Pitocin (milliunit): Pitocin Increased to (milliunits) @ 8 (Marck Mccarthy RN) Communication: RN at Bedside; RN Reviewed Strip (Marck Mccarthy RN) Datetime: 10/22/2016 10:38 NBP Sys/Rebekah/Mean (mmHg): 93 (QS system process) : 51 (QS system process) : 67 (QS system process) Pulse: 69 (QS system process) Datetime: 10/22/2016 10:30 Monitor Mode: External; Palpation (Marck Mccarthy RN) Frequency (min): 1-5 (Marck Mccarthy RN) Quality: Moderate (Marck Mccarthy RN) Duration (sec): 50-80 (Marck Mccarthy RN) Resting Tone (Palpate): Relaxed (Marck Mccarthy RN) Contraction Comments: Coupling noted (Marck Mccarthy RN) Monitor Mode: External US (Marck Mccarthy RN) FHR Baseline Rate : 140 (Marck Mccarthy RN) Variability: Moderate 6-25 bpm (Marck Mccarthy RN) Accelerations: 15X15 (Marck Mccarthy RN) Decelerations: Variable (Marck Mccarthy RN) Pitocin (milliunit): Pitocin Remains (milliunits) @ (Marck Mccarthy RN) Communication: RN at Bedside; RN Reviewed Strip (Marck Mccarthy RN) Datetime: 10/22/2016 10:29 Pain Scale: 3 (Marck Mccarthy RN) Pain Presence: Intermittent (Marck Mccarthy RN) Pain Type: Cramping; Contraction (Marck Mccarthy RN) Pain Location: Abdomen (Marck Mccarthy RN) Pain Relief Measures: Comfort Measures (Marck Mccarthy RN) Pain Coping: Talking Through Contractions; Declines Medication or Epidural (Marck Mccarthy RN) Pain Assessment Comments: Pt resting, no distress noted. (Marck Mccarthy RN) IV/Blood Work: New IV Bag Hung (Marck Mccarthy RN) Comfort Measures: Breathing/Relaxation (Marck Mccarthy RN) Patient Care Comments: LR 125ml/hr (Marck Mccarthy RN) Communication: RN at Bedside; RN Reviewed Strip (Marck Mccarthy RN) Datetime: 10/22/2016 10:25 Monitor Interventions for UA: [place] Adjusted (Marck Mccarthy RN) Patient Position/Activity: Left Extreme (Marck Mccarthy RN) Datetime: 10/22/2016 10:23 NBP Sys/Rebekah/Mean (mmHg): 107 (QS system process) : 58 (QS system process) : 77 (QS system process) Pulse: 78 (QS system process) Datetime: 10/22/2016 10:15 Monitor Mode: External; Palpation (Marck Mccarthy, RN) Frequency (min): 2-3 (Marck Mccarhty, RN) Quality: Moderate (Marck Tesfayet, RN) Duration (sec): 60-70 (Marck Riggseet, RN) Duration Criteria: Less than Two 120 Second Contractions (Marck Mccarthy, RN) Pattern: Normal: <= 5 Contractions in 10 Minutes (Marck Mccarthy, RN) Resting Tone (Palpate): Relaxed (Marck Mccarthy, RN) Monitor Mode: External US (Marck Mccarthy, RN) FHR Baseline Rate : 140 (Marck Mccarthy, RN) FHR Baseline Changes: No Baseline Change (Marck Mccarthy, RN) Variability: Moderate 6-25 bpm (Marck Riggseet, RN) Accelerations: 15X15 (Marck Riggseet, RN) Decelerations: None (Marck Riggseet, RN) Pitocin (milliunit): Pitocin Remains (milliunits) @ 6 (Marck Mccarthy RN) Communication: RN at Bedside; RN Reviewed Strip (Marck Mccarthy RN) Datetime: 10/22/2016 10:08 NBP Sys/Rebekah/Mean (mmHg): 106 (QS system process) : 57 (QS system process) : 76 (QS system process) Pulse: 66 (QS system process) Datetime: 10/22/2016 10:00 Monitor Mode: External; Palpation (Marck Shari, RN) Frequency (min): 3-4 (Marck Shari, RN) Quality: Moderate (Marck Shari, RN) Duration (sec): 50-70 (Marck Shari, RN) Duration Criteria: Less than Two 120 Second Contractions (Marck Shari, RN) Pattern: Normal: <= 5 Contractions in 10 Minutes (Marck Shari, RN) Resting Tone (Palpate): Relaxed (Marck Shari, RN) Monitor Mode: External US (Marck Shari, RN) FHR Baseline Rate : 140 (Marck Shari, RN) Variability: Moderate 6-25 bpm (Marck Shari, RN) Accelerations: 15X15 (Marck Hsari, RN) Decelerations: None (Marck Shari, RN) Communication: RN at Bedside; RN Reviewed Strip (Marck Riggseet, RN) Datetime: 10/22/2016 09:58 Pitocin (milliunit): Pitocin Increased to (milliunits) @ 6 (Marck Shari, RN) Datetime: 10/22/2016 09:53 NBP Sys/Rebekah/Mean (mmHg): 116 (QS system process) : 65 (QS system process) : 84 (QS system process) Pulse: 65 (QS system process) Datetime: 10/22/2016 09:52 Patient Position/Activity: Right Extreme (Marck Shari, RN) Datetime: 10/22/2016 09:45 Monitor Mode: External; Palpation (Marck Mccarthy RN) Quality: Moderate (Marck Mccarthy RN) Resting Tone (Palpate): Relaxed (Marck Mccarthy RN) Contraction Comments: UTD; adjusting toco (Marck Mccarthy, RN) Monitor Mode: External US (Marck Mccarthy RN) FHR Baseline Rate : 140 (Marck Mccarthy, RN) Variability: Moderate 6-25 bpm (Marck Mccarthy, RN) Accelerations: 10X10 (Marck Mccarthy, RN) Decelerations: None (Marck Mccarthy RN) Pitocin (milliunit): Pitocin Remains (milliunits) @ 4 (Marck Mccarthy RN) Communication: RN at Bedside; RN Reviewed Strip (Marck Mccarthy RN) Datetime: 10/22/2016 09:40 Monitor Interventions for UA: [place] Adjusted (Marck Riggseet, RN) Datetime: 10/22/2016 09:38 NBP Sys/Rebekah/Mean (mmHg): 97 (QS system process) : 55 (QS system process) : 72 (QS system process) Pulse: 69 (QS system process) Datetime: 10/22/2016 09:36 Monitor Interventions for UA: [place] Adjusted (Marck Mccarthy RN) Pitocin (milliunit): Pitocin Increased to (milliunits) @ 4 (Marck Mcacrthy RN) Datetime: 10/22/2016 09:35 Pain Scale: 2 (Marck Mccarthy RN) Pain Presence: Intermittent (Marck Mccarthy RN) Pain Type: Contraction (Marck Mccarthy RN) Pain Location: Abdomen (Marck Mccarthy RN) Pain Relief Measures: Comfort Measures (Marck Mccarthy RN) Pain Coping: Talking Through Contractions; Declines Medication or Epidural (Marck Mccarthy RN) Pain Assessment Comments: Pt resting, no distress noted. (Marck Mccarthy RN) Comfort Measures: Breathing/Relaxation (Marck Mccarthy RN) Datetime: 10/22/2016 09:30 Monitor Mode: External; Palpation (Marck Mccarthy RN) Frequency (min): 1-3 (Marck Mccarthy RN) Quality: Mild/Moderate (Marck Mccarthy RN) Duration (sec): 50-80 (Marck Mccarthy RN) Resting Tone (Palpate): Relaxed (Marck Mccarthy RN) Monitor Mode: External US (Marck Mccarthy RN) FHR Baseline Rate : 140 (Marck Mccarthy RN) FHR Baseline Changes: No Baseline Change (Marck Mccarthy RN) Variability: Moderate 6-25 bpm (Marck Mccarthy RN) Accelerations: 15X15 (Marck Mccarthy RN) Decelerations: None (Marck Mccarthy RN) Pitocin (milliunit): Pitocin Remains (milliunits) @ 2 (Marck Mccarthy RN) Communication: RN at Bedside; RN Reviewed Strip (Marck Mccarthy RN) Communication Comments: management consultant at bedside (Marck Mccarthy RN) Datetime: 10/22/2016 09:25 I/O Interventions: Up to BR (Marck Mccarthy, RN) Datetime: 10/22/2016 09:24 NBP Sys/Rebekah/Mean (mmHg): 110 (QS system process) : 56 (QS system process) : 76 (QS system process) Pulse: 75 (QS system process) Datetime: 10/22/2016 09:15 Monitor Mode: External; Palpation (Marck Mccarthy, RN) Frequency (min): 1-3 (Marck Mccarthy, RN) Quality: Mild/Moderate (Marck Mccarthy, RN) Duration (sec): 50-100 (Marck Mccarthy, RN) Resting Tone (Palpate): Relaxed (Marck Mccarthy, RN) Monitor Mode: External US (Marck Mccarthy RN) FHR Baseline Rate : 140 (Marck Mccarthy RN) Variability: Moderate 6-25 bpm (Marck Mccarthy, RN) Accelerations: 15X15 (Marck Mccarthy, RN) Decelerations: None (Marck Mccarthy RN) Pitocin (milliunit): Pitocin Remains (milliunits) @ 2 (Marck Mccarthy RN) Communication: RN at Bedside; RN Reviewed Strip (Marck Mccarthy RN) Datetime: 10/22/2016 09:09 NBP Sys/Rebekah/Mean (mmHg): 100 (QS system process) : 55 (QS system process) : 75 (QS system process) Pulse: 78 (QS system process) Datetime: 10/22/2016 09:00 Respirations: 16 (Marck Mccarthy RN) Monitor Mode: External; Palpation (Marck Mccarthy RN) Frequency (min): 4-6 (Marck Mccarthy RN) Quality: Mild/Moderate (Marck Mccarthy RN) Duration (sec): 70-110 (Marck Mccarthy RN) Resting Tone (Palpate): Relaxed (Marck Mccarthy RN) Monitor Mode: External US (Marck Mccarthy RN) FHR Baseline Rate : 140 (Markc Mccarthy RN) Variability: Moderate 6-25 bpm (Marck Mccarthy RN) Accelerations: 15X15 (Marck Mccarthy RN) Decelerations: None (Marck Mccarthy RN) Level of Consciousness: Fully Conscious (Marck Mccarthy RN) Headache: Denies (Marck Mccarthy RN) Nausea/Vomiting: Denies (Marck Mccarthy RN) Pitocin (milliunit): Pitocin Remains (milliunits) @ 2 (Marck Mccarthy RN) Communication: RN at Bedside; RN Reviewed Strip (Marck Mccarthy RN) Datetime: 10/22/2016 08:53 NBP Sys/Rebekah/Mean (mmHg): 97 (QS system process) : 52 (QS system process) : 68 (QS system process) Pulse: 67 (QS system process) Datetime: 10/22/2016 08:52 Pitocin (milliunit): Pitocin Started (milliunits) @ 2 (Marck Shari, RN) Datetime: 10/22/2016 08:51 Labor/Induction: Labor Stages; Induction (Marck Shari, RN) Medications: Pitocin (Marck Shari, RN) Datetime: 10/22/2016 08:48 Patient Care Comments: LR 125ml/hr (Marck Shari, RN) Datetime: 10/22/2016 08:44 I/O Interventions: Popsicle (Marck Shari, RN) Datetime: 10/22/2016 08:43 Communication Comments: K Santiago CNM states pt may have popsicle. (Marck Shari, RN) Datetime: 10/22/2016 08:39 Monitor Interventions for UA: [place] Adjusted (Marck Shari, RN) Datetime: 10/22/2016 08:38 Bedside Blood Glucose: 70 (QS system process) Patient Position/Activity: Left Lateral (Marck Shari, RN) Datetime: 10/22/2016 08:33 Monitor Interventions for UA: [place] Adjusted (Marck Shari, RN) Datetime: 10/22/2016 08:32 Communication Comments: K Santiago CNM at bedside to assess pt (Marck Shari, RN) Datetime: 10/22/2016 08:31 NBP Sys/Rebekah/Mean (mmHg): 95 (QS system process) : 52 (QS system process) : 69 (QS system process) Pulse: 72 (QS system process) IV/Blood Work: IV Bolus Started (Marck Mccarthy RN) Patient Position/Activity: Right Lateral (Marck Mccarthy RN) Datetime: 10/22/2016 08:30 Monitor Mode: External; Palpation (Marck Mccarthy RN) Frequency (min): 1-6 (Marck Mccarthy RN) Quality: Mild/Moderate (Marck Mccarthy RN) Duration (sec): 60-110 (Marck Mccarthy RN) Resting Tone (Palpate): Relaxed (Marck Mccarthy RN) Monitor Mode: External US (Marck Mccarthy RN) FHR Baseline Rate : 145 (Marck Mccarthy RN) Variability: Moderate 6-25 bpm (Marck Mccarthy RN) Accelerations: 10X10 (Marck Mccarthy RN) Decelerations: Prolonged (Marck Mccarthy RN) Comments: prolonged decel noted after multiple contractions without relaxation; Russ Santiago CNM aware. (Marck Mccarthy RN) Communication: RN at Bedside; RN Reviewed Strip (Marck Mccatrhy RN) Datetime: 10/22/2016 08:23 Patient Position/Activity: Left Lateral (Marck Riggseet, RN) Communication: RN at Bedside (Marck Tesfayet, RN) Datetime: 10/22/2016 08:17 I/O Interventions: Up to BR (Marck Mccarthy RN) Provider Reviewed Strip: Yes (Marck Mccarthy RN) Communication Comments: K Santiago CNM reviewed strip; notified of pt hx, induction, VE, núñez score, vs. Orders to start pitocin 20 units/1000ml NSS at 2mu/min; increase q 15min. (Marck Riggseet, RN) Datetime: 10/22/2016 08:05 IV/Blood Work: Labs Drawn (Marck Tesfayet, RN) Datetime: 10/22/2016 08:00 Monitor Mode: External; Palpation (Marck Mccarthy RN) Frequency (min): irregular (Marck Mccarthy RN) Quality: Mild (Marck Mccarthy RN) Duration Criteria: Less than Two 120 Second Contractions (Marck Mccarthy RN) Pattern: Normal: <= 5 Contractions in 10 Minutes (Marck Mccarthy RN) Resting Tone (Palpate): Relaxed (Marck Mccarthy RN) Monitor Mode: External US (Marck Mccarthy RN) FHR Baseline Rate : 145 (Marck Mccarthy RN) Variability: Moderate 6-25 bpm (Marck Mccarthy RN) Accelerations: 15X15 (Marck Mccarthy RN) Decelerations: None (Marck Mccarthy RN) Pain Scale: 2 (Marck Mccarthy RN) Pain Presence: Intermittent (Marck Mccarthy RN) Pain Type: Contraction (Marck Mccarthy RN) Pain Location: Abdomen (Marck Mccarthy RN) Pain Relief Measures: Comfort Measures (Marck Mccarthy RN) Pain Coping: Talking Through Contractions; Declines Medication or Epidural (Marck Mccarthy RN) Comfort Measures: Breathing/Relaxation (Marck Mccarthy RN) Communication: RN at Bedside; RN Reviewed Strip (Marck Mccarthy RN) Datetime: 10/22/2016 07:54 Temperature (F): 97.6 (Marck Mccarthy, WIL) Temperature (C): 36.4 (QS system process) Datetime: 10/22/2016 07:49 Dilatation (cm): 2.0 (Marck Mccarthy RN) Effacement (%): 50 (Marck Mccarthy RN) Station: -2 (Marck Mccarthy, RN) Exam by: Carl Mccarthy RN (Marck Mccarthy RN) Vaginal Bleeding: None (Marck Mccarthy RN) Cervix, Consistency: Moderate (Marck Mccarthy RN) Cervix, Position: Posterior (Marck Mccarthy, RN) Dilatation (cm): 1-2 cm (Marck Mccarthy, RN) Effacement: 40-50_ effaced (Marck Mccarthy, RN) Station: minus 2 (Marck Mccarthy, WIL) Consistency: Medium (Marck Mccarthy, RN) Position: Posterior (Marck Mccarthy, RN) Total Núñez's Score: 4 (QS system process) : 0-4 = Unfavorable cervix (QS system process) Datetime: 10/22/2016 07:42 IV/Blood Work: IV Started; IV Bolus Started (Marck Mccarthy RN) Patient Care Comments: 18G L Forearm; LR bolus 300ml per order then 125ml/hr. Pt tolerated well, good blood return. (Marck Mccarthy RN) Datetime: 10/22/2016 07:33 Procedures: Consents Signed (Marck Mccarthy RN) Datetime: 10/22/2016 07:30 Pain Scale: 1 (Marck Mccarthy RN) Pain Presence: Intermittent (Marck Mccarthy RN) Pain Type: Contraction (Marck Shari, RN) Pain Location: Abdomen (Marck Mccarthy RN) Pain Relief Measures: Comfort Measures (Marck Mccarthy RN) Pain Coping: Talking Through Contractions; Declines Medication or Epidural (Marck Mccarthy RN) Vaginal Bleeding: None (Marck Mccarthy RN) Level of Consciousness: Fully Conscious (Marck Mccarthy RN) DTR's/Clonus: DTRs 2+; No Clonus (Marck Mccarthy RN) Headache: Denies (Marck Mccarthy RN) Breath Sounds, Left: Clear and Equal (Marck Mccarthy RN) Breath Sounds, Right: Clear and Equal (Marck Mccarthy RN) Nausea/Vomiting: Denies (Marck Mccarthy RN) RUQ Epigastric Pain: Denies (Marck Mccarthy RN) Comfort Measures: Breathing/Relaxation; Family Support (Marck Mccarthy RN) I/O Interventions: Clear Liquids Given; Up to BR (Marck Mccarthy RN) Instructional Method: Demo; Verbal; Patient Instructed; Family/Support Person Instructed; Verbalized Understanding (Marck Mccarthy RN) Plan of Care: Plan of Care Discussed; Vaginal Delivery; Labor; Induction (Marck Mccarthy RN) Unit Routine: [place] to Room; Call Ly; Bed; Visiting Policy; Waiting Areas; Infant Security; Phone/Cell Phone Use; Photography; Unit Personnel; Handwashing; Flu/Illness Precautions; Monitoring; IV Pumps; Safety/Fall Risk Prevention; Diet/Nutrition Services; Bathroom Privileges; Routine Time Outs; Medications (Marck Mccarthy RN) Labor/Induction: Labor Stages; Induction (Marck Mccarthy RN) Pain Management: IV Narcotics; Epidural; PRN Medications; Pain Scale/Goals; Comfort Measures (Marck Mccarthy RN) Medications: Pitocin (Marck Mccarthy RN) Related: Common Discomforts of ; Maternal Physical Changes; Maternal Emotional Changes; Nutrition; Hydration; Activity and Rest (Marck Mccarthy RN) Datetime: 10/22/2016 07:29 NBP Sys/Rebekah/Mean (mmHg): 123 (QS system process) : 72 (QS system process) : 90 (QS system process) Pulse: 100 (QS system process)
--- NOTE | 2016-10-22 19:04 | Delivery Summary ---
Del Sum A-C Datetime Report Generated by CPN: 10/22/2016 19:04 ADMISSION DATA Chief Complaint: Scheduled Induction of Labor Indication for Induction: Maternal Diabetes Admission Impression: Term, Intrauterine ; Intact Membranes Admit Provider Comments: BS 70 DELIVERY PERSONNEL Delivery Doctor:: Elly Santiago CNM Nurse Vmware Consultant Certified:: Elly Santiago CNM Labor and Delivery Nurse:: Marck Mccarthy RNtextile clothing and footwear mechanic Nurse:: Lorena Valencia RN Face Cleaner/PRINT BINDING WORKER: ST Johnnie Rebolledoub Tech/PRINT BINDING WORKER: Fadumo Perkins CNA II MATERNAL INFORMATION Delivery Anesthesia: Epidural Medications After Delivery: Pitocin Drip 20 Units/1000ml NSS Estimated Blood Loss (ml): 300 Maternal Complications: None Provider Comments: SVDVM over intact perineum, ROB with compound Rt hand. vigorous, to mothers abd. Cord clamped x 2 cut per FOB, cord blood collected. Placenta intact via santiago. EBL 300. Apgars 8,9. LABOR SUMMARY EDC: 10/28/2016 00:00 No. Babies in Womb: 1 Attempted: No Labor Anesthesia: Epidural LABOR INFORMATION Reason for Induction: Other Reason for Induction- Other: Gestational DM Onset of Labor: 10/22/2016 12:04 Complete Dilatation: 10/22/2016 16:06 Oxytocin: Induction Group B Beta Strep: Negative Steroids Given: None Reason Steroids Not Administered: Not Applicable MEMBRANES Membranes Rupture Method: Artificial Rupture of Membranes: 10/22/2016 12:04 Length of Rupture (hr): 4.35 Amniotic Fluid Color: Clear Amniotic Fluid Amount: Small Amniotic Fluid Odor: Normal STAGES OF LABOR Stage 1 hr: 4 Stage 1 min: 2 Stage 2 hr: 0 Stage 2 min: 19 Stage 3 hr: 0 Stage 3 min: 18 Total Time in Labor hr: 4 Total Time in Labor min: 39 VAGINAL DELIVERY Episiotomy: None Laceration Extension: N/A Laceration Type: None Laceration Repair: No Laceration Repair Note: No lacerations BABY A INFORMATION Delivery Date/Time: 10/22/2016 16:25 Method of Delivery: Vaginal Born in Route : No : N/A Forceps: N/A Vacuum Extraction: N/A PRESENTATION/POSITION BABY A Presentation: Cephalic Cephalic Presentation: Vertex Vertex Position: Right Occipital Anterior Breech Presentation: N/A PLACENTA INFORMATION BABY A Placenta Delivery Time : 10/22/2016 16:43 Placenta Method of Delivery: Spontaneous Placenta Status: Delivered SCORES BABY A Heart Rate 1 min: >100 bpm Resp Effort 1 min: Good Cry Reflex Irritability 1 min: Cough or Sneeze or Pulls Away Muscle Tone 1 min: Some Flexion of Extremities Color 1 min: Body [place], Extremities Blue Resuscitation Effort 1 min: Tactile Stimulation SCORE 1 MIN: 8 Heart Rate 5 min: >100 bpm Resp Effort 5 min: Good Cry Reflex Irritability 5 min: Cough or Sneeze or Pulls Away Muscle Tone 5 min: Active Motion Color 5 min: Body [place], Extremities Blue Resuscitation Effort 5 min: Tactile Stimulation SCORE 5 MIN: 9 INFORMATION BABY A Gestational Age at Delivery: 39.1 Gestational Status: Full Term- 39- 40.6 Weeks Outcome : Liveborn Infant Condition : Stable Sex: Male IDENTIFICATION BABY A Verification Date/Time: 10/22/2016 16:45 ID Band Number: [id number] Mother's Name Verified: Yes RN Verifying Infant: S Shari RN/ B Dillhunt RN WEIGHT/LENGTH BABY A Birthweight (gm): 3115 Infant Weight (lb): 6 Weight (oz): 14 Infant Length (in): 20.00 Length (cm): 50.80 CORD INFORMATION BABY A No. Cord Vessels: 3 Nuchal Cord : N/A Cord Blood Taken: Yes-For Eval (Mom's Blood Type - or O+) Infant Suction: None ASSESSMENT BABY A Physical Findings at Delivery: Within Normal Limits Physical Findings- Other: See Nursery assessment Respirations: Appears Normal Skin to Skin: Yes Skin to Skin Time (min): 60 Hospital Internship/ALS Called : No Infant Care By: A Erik RN Transferred To: Remains with Mother BABY B INFORMATION : N/A SIGNATURES Assignment: Elisabeth Patterson MD Signature: with User ID: [email or web address] : with User ID: Pat : I was personally available for consultation and serving as supervising physician for the MLP.
[2016-10-22] MEDS: FERROUS SULFATE 325 MG TABLET PO SCH (20:00)
[2016-10-22] MEDS: DOCUSATE SODIUM 100 MG CAPSULE PO SCH (20:00)
[2016-10-22] MEDS: IBUPROFEN 800 MG TABLET PO SCH (23:31)
[2016-10-23] MEDS: IBUPROFEN 800 MG TABLET PO SCH ×3 (05:18→21:29)
--- NOTE | 2016-10-23 06:00 | L&D Current Admission ---
Current Admit Datetime Report Generated by CPN: 10/23/2016 06:00 ADMISSION INFORMATION Current Admit Date/Time: 10/22/2016 07:18 (10/22/2016 07:18:Marck Mccarthy RN) Reason for Admission: Induction of Labor (10/22/2016 07:18:Marck Mccarthy RN) Chief Complaint: Scheduled Induction of Labor (10/22/2016 07:30:Marck Mccarthy RN) Meds During -Oth: Glyburide, PNV (10/22/2016 07:18:Marck Mccarthy RN) EGA per Dates: 39.1 (10/22/2016 07:18:QS system process) Method of Arrival: Ambulatory (10/22/2016 07:18:Marck Mccarthy RN) Admitted From: Home (10/22/2016 07:18:Marck Mccarthy RN) Reason for Induction: Other (10/22/2016 07:18:Marck Mccarthy RN) Reason for Induction- Other: Gestational Diabetes (10/22/2016 07:18:Marck Mccarthy RN) Records Available: Yes (10/22/2016 07:18:Marck Mccarthy RN) General Admission Information: Reviewed; Updated; Confirmed (10/22/2016 07:18:Marck Mccarthy RN) General Admission Reviewed By: Carl Mccarthy RN (10/22/2016 07:18:Marck Mccarthy RN) BELONGINGS/ADVANCED DIRECTIVES Disposition of Belongings: Kept with Patient (10/22/2016 07:18:Marck Mccarthy RN) Comments Regarding Disposition: See [facility] Values Consent filled out by patient (10/22/2016 07:18:Marck Mccarthy RN) Advance Direct for Healthcare: No, and Wants No Information (10/22/2016 07:18:Marck Mccarthy RN) Durable Power of Cytotechnologist Supervisor: No (10/22/2016 07:18:Marck Mccarthy RN) Living Will: No (10/22/2016 07:18:Marck Mccarthy RN) Organ Donor: No (10/22/2016 07:18:Marck Mccarthy RN) Pt Rights Information Given: Yes (10/22/2016 07:18:Marck Mccarthy RN) Pt Understands Pt Rights: Yes (10/22/2016 07:18:Marck Mccarthy RN) LEARNING ASSESSMENT Knowledge Level: Understands L_D Process (10/22/2016 07:18:Marck Mccarthy RN) Barriers to Learning: None (10/22/2016 07:18:Marck Mccarthy RN) Learning Readiness: Motivated (10/22/2016 07:18:Marck Mccarthy RN) Learns Best By: 1 to 1 Instruction (10/22/2016 07:18:Marck Mccarthy RN) Learning Needs: Labor and Delivery Process; Pain Management; Symptoms to Report; Treatment Plan; Medication; Diagnosis (10/22/2016 07:18:Marck Mccarthy RN) DOMESTIC VIOLANCE SCREENING Dom Viol Threatened/Hurt: No (10/22/2016 07:18:Marck Mccarthy RN) Hx of Abuse/Neglect past 2yrs: No (10/22/2016 07:18:Marck Mccarthy RN) Feel Unsafe Going Home: No (10/22/2016 07:18:Marck Mccarthy RN) Addt'l Observ Indicating Abuse: No (10/22/2016 07:18:Marck Mccarthy RN) Reason Unable to Complete Screen: N/A, Screen Completed (10/22/2016 07:18:Marck Mccarthy RN) Considered Personal Harm/Suicide: No (10/22/2016 07:18:Marck Mccarthy RN) NUTRITIONAL/FUNCTIONAL SCREENING Problem with Appetite >5 Days: No (10/22/2016 07:18:Marck Mccarthy RN) Chew/Swallow Difficulties: No (10/22/2016 07:18:Marck Mccarthy RN) Inappropriate Wt Gain/Loss: No (10/22/2016 07:18:Marck Mccarthy RN) Presence Skin Breakdown/Ulcer: No (10/22/2016 07:18:Marck Mccarthy RN) Special Diet: No (10/22/2016 07:18:Marck Mccarthy RN) Pt Requests Seismic Computer Visit: No (10/22/2016 07:18:Marck Mccarthy RN) Hx of Any of the Following?: N/A (10/22/2016 07:18:Marck Mccarthy RN) New Diagnosis of: N/A (10/22/2016 07:18:Marck Mccarthy RN) Requires Assist w/Ambulation: No (10/22/2016 07:18:Marck Mccarthy RN) Uses Assist Device to Ambulate: No (10/22/2016 07:18:Marck Mccarthy RN) Pt Requires Help w/ADL's: No (10/22/2016 07:18:Marck Mccarthy RN)
--- NOTE | 2016-10-23 06:00 | L&D General Admission ---
General Admit Datetime Report Generated by CPN: 10/23/2016 06:00 INFORMATION Patient Age: 26 (09/06/2016 11:37:QS system process) EDC: 10/28/2016 00:00 (09/21/2016 10:43:Lorena Valencia RN) : 3 (09/21/2016 10:43:Alison Rae RN) Para: 2 (09/21/2016 10:43:Alison Rae RN) Term: 2 (09/21/2016 10:43:Alison Rae RN) : 0 (09/21/2016 10:43:Alison Rae RN) Spontaneous Abortions: 0 (09/21/2016 10:43:Alison Rae RN) Induced Abortions: 0 (09/21/2016 10:43:Alison Rae RN) Livin (09/21/2016 10:43:Alison Rae RN) Cesareans: 0 (09/21/2016 10:43:Alison Rae RN) VBACs: 0 (09/21/2016 10:43:Alison Rae RN) Ectopic: 0 (09/21/2016 10:43:Alison Rae RN) Multiple Births: 0 (09/21/2016 10:43:Alison Rae RN) Baby, Number in Womb: 1 (09/21/2016 10:42:Lorena Valencia RN) CARE Primary Photographer Model: [facility] (09/21/2016 10:43:Lorena Valencia RN) Month of 1st Visit: 03/2016 (09/21/2016 10:43:Alison Rae RN) Adequate Care: Yes (09/21/2016 10:43:Alison Rae RN) Prepregnancy Weight (lb): 102 (09/21/2016 10:43:Alison Rae RN) Prepregnancy Weight (kg): 46.4 (09/21/2016 10:43:QS system process) Height (in): 66 (10/22/2016 18:18:QS system process) ALLERGIES Medication Allergy: No (09/21/2016 10:43:Lorena Valencia RN) Medication Allergies: No Known Allergies (10/22/2016) (10/22/2016 07:23:QS system process) Latex Allergy: No Latex Allergies (09/21/2016 10:43:Lorena Valencia RN) Food Allergies: N/A (09/21/2016 10:43:Alison Rae RN) Environmental Allergies: N/A (09/21/2016 10:43:Alison Rae RN) COMMUNICATION Primary Language: Nauruan (09/21/2016 10:43:Lorena Valencia RN) Medical Tx Preferred Language: Nauruan (09/21/2016 10:43:Lorena Valencia RN) Communication Barrier(s): None (09/21/2016 10:43:Alison Rae RN) DEMOGRAPHICS Address: [address] [place] [id number] (09/21/2016 10:17:QS system process) Zipcode: [phone] (09/06/2016 11:37:QS system process) Home (09/06/2016 11:37:QS system process) N: [phone] (09/06/2016 11:37:QS system process) Next of Kin Name: CALIN MISTRY (09/06/2016 11:37:QS system process) Next of Kin (09/21/2016 10:17:QS system process) Next of Kin Relationship: SPO (09/06/2016 11:37:QS system process) Date of : 1990 (09/06/2016 11:37:QS system process) Marital Status: (09/06/2016 11:37:QS system process) Sex: Female (09/06/2016 11:37:QS system process) Occupation: None (09/21/2016 10:43:Marck Mccarthy RN) Race: (09/06/2016 11:37:QS system process) Ethnicity: Non- or (09/06/2016 11:37:QS system process) Caodaism: Orthodoxy (09/06/2016 11:37:QS system process) Education: 12 (09/21/2016 10:43:Marck Mccarthy RN) FOB Involved: Yes (09/21/2016 10:43:Marck Mccarthy RN) Father of Baby Name: Calin Joseph (09/21/2016 10:43:Marck Mccarthy RN) DRUG AND ALCOHOL USE Alcohol: No (09/21/2016 10:43:Alison Rae RN) Cigarettes: Former Smoker. [id number] (09/21/2016 10:43:Alison Rae RN) Marijuana: No (09/21/2016 10:43:Alisonladi Rae RN) Cocaine: No (09/21/2016 10:43:Alison Rae RN) Other Illicit Drugs: No (09/21/2016 10:43:Alisonladi Rae RN) VACCINE HISTORY Influenza Vaccine: No (09/21/2016 10:43:Alison Rae RN) Pneumococcal Vaccine: No (09/21/2016 10:43:Alison Rae RN) Tetanus Vaccine: Yes (09/21/2016 10:43:Alison Rae RN) Tdap Vaccine: Yes (09/21/2016 10:43:Alison Rae RN) Hepatitis B Vaccine: Yes (09/21/2016 10:43:Alison Rae RN) Heavy Equipment Operator Apprentice: [facility] (09/21/2016 10:43:Alison Rae RN) Feeding Preference: Breast (09/21/2016 10:43:Alison Rae RN) Benefit of Breast Feed Discussed: Yes (09/21/2016 10:43:Alison Rae RN) Circumcision: Yes (09/21/2016 10:43:Alison Rae RN) Classes Attended: No (09/21/2016 10:43:Alison Rae RN) Tubal Ligation: No (09/21/2016 10:43:Alison Rae RN) Tubal Authorization Signed: N/A (09/21/2016 10:43:Alison Rae RN) Consent: N/A (09/21/2016 10:43:Alison Rae RN) Consent Signed: N/A (09/21/2016 10:43:Alison Rae RN) Pain Management Plans: Natural (09/21/2016 10:43:Alison Rae RN) Plans for Labor and Delivery: None (09/21/2016 10:43:Alison Rae RN) Support Person: Calin Joseph (09/21/2016 10:43:Marck Mccarthy RN) Support Person Relationship: Significant Other (09/21/2016 10:43:Alison Rae RN) Cultural/Spritual Practice: No (09/21/2016 10:43:Alison Rae RN) Spir/Cult Dietary Needs: No (09/21/2016 10:43:Alison Rae RN) LIVING SITUATION/DISCHARGE PLAN Living Arrangements: House (09/21/2016 10:43:Alison Rae RN) Adequate Access to:: Electric; Heat; Refrigeration; Plumbing/Running water; Phone; Transportation (09/21/2016 10:43:Alison Rae RN) WIC Program: Yes (09/21/2016 10:43:Alison Rae RN) Discharge Patternmaker Wood Person: Calinjuanjose Joseph (09/21/2016 10:43:Marck Mccarthy RN) Person to Help after Discharge: Calin Joseph (09/21/2016 10:43:Marck Mccarthy RN) Currently Using Commun Resources: Yes (09/21/2016 10:43:Alison Rae RN) Specify Current Resource Used: Medicaid (09/21/2016 10:43:Alison Rae RN) Outside Agency/Cinder Pit Worker: No (09/21/2016 10:43:Alison Rae RN) Car Seat for Discharge: Yes (09/21/2016 10:43:Alison Rae RN) Adoption Requested: No (09/21/2016 10:43:Alison Rae RN) Pt Contact w/infant Post : N/A (09/21/2016 10:43:Alison Rae RN) LABS Blood Type: O Positive (09/21/2016 10:43:Alison Rae RN) Antibody Screen: Negative (09/21/2016 10:43:Alison Rae RN) Rho(G) this : Not Applicable (09/21/2016 10:43:Alison Rae RN) Hemoglobin: 9.7 L (10/22/2016 08:04:QS system process) Hematocrit: 28.7 L (10/22/2016 08:04:QS system process) MCV: 81 (10/22/2016 08:04:QS system process) Group Beta Strep: Negative (09/21/2016 10:43:Alison Rae RN) Gonorrhea: Negative (09/21/2016 10:43:Alison Rae RN) Chlamydia: Negative (09/21/2016 10:43:Alison Rae RN) RPR/VDRL: Nonreactive (09/21/2016 10:43:Alison Rae RN) HIV Exposure Test: Negative (09/21/2016 10:43:Alison Rae RN) Hepatitis B: Negative (09/21/2016 10:43:Alison Rae RN) Rubella: Immune (09/21/2016 10:43:Alison Rae RN) Rubella Titer: 4.73 (09/21/2016 10:43:Alison Rae RN) OB/PREVIOUS HISTORY Previous Procedures: Ultrasound (09/21/2016 10:43:Marck Mccarthy RN) Current Procedures: Ultrasound (09/21/2016 10:43:Marck Mccarthy RN) History of Previous : No (09/21/2016 10:43:Alison Rae RN) History of Gestational Diabetes: Yes (09/21/2016 10:43:Alison Rae RN) History of PIH: No (09/21/2016 10:43:Alison Rae RN) History of Incompetent Cervix: No (09/21/2016 10:43:Alison Rae RN) History of Placenta Previa/Abrup: No (09/21/2016 10:43:Alison Rae RN) History of Macrosomia: No (09/21/2016 10:43:Alison Rae RN) History of IUGR: No (09/21/2016 10:43:Alison Rae RN) History of Hemorrhage: No (09/21/2016 10:43:Alison Rae RN) History of Loss/Stillborn: No (09/21/2016 10:43:Alison Rae RN) History of : No (09/21/2016 10:43:Alison Rae RN) History of D (Rh) Sensitization: No (09/21/2016 10:43:Alison Rae RN) History Recurrent Loss/Stillborn: No (09/21/2016 10:43:Alison Rae RN) History Depression/PP Depression: Yes (09/21/2016 10:43:Tuyet Bhatti RN) History of Uterine Anomaly/EDDIE: No (09/21/2016 10:43:Alison Rae RN) History of Infertility: No (09/21/2016 10:43:Alison Rae RN) History of ART Treatment: No (09/21/2016 10:43:Alison Rae RN) History of EDDIE: No (09/21/2016 10:43:Alison Rae RN) Comments Obstetrical History: G1: 2010 baby girl, 40 weeks, 6 hours labor, 6 lb 13 oz G2: 2013 baby boy, 40.6 weeks, 8 lb 7 oz G3: Current; GDM on Glyburide (09/21/2016 10:43:Alison Rae RN) MEDICAL HISTORY Med Hx Diabetes: Yes (09/21/2016 10:43:Alison Rae RN) Diabetes Type: Gestational Diabetes (09/21/2016 10:43:Alison Rae RN) Med Hx Hypertension: No (09/21/2016 10:43:Alison Rae RN) Med Hx Heart Disease: No (09/21/2016 10:43:Alison Rae RN) Med Hx Autoimmune Disorder: No (09/21/2016 10:43:Alison Rae RN) Med Hx Kidney Disease/UTI: Yes (09/21/2016 10:43:Alison Rae RN) Med Hx Neurologic/Epilepsy: No (09/21/2016 10:43:Alison Rae RN) Med Hx Psychiatric Disorders: Yes (09/21/2016 10:43:Tuyet Bhatti RN) Med Hx Hepatitis/Liver Disease: No (09/21/2016 10:43:Alison Rae RN) Med Hx Varicosities/Phlebitis: No (09/21/2016 10:43:Alison Rae RN) Med Hx Thyroid Dysfunction: No (09/21/2016 10:43:Alison Rae RN) Med Hx Trauma/Violence: No (09/21/2016 10:43:Alison Rae RN) Med Hx Blood Transfusion: No (09/21/2016 10:43:Alison Rae RN) Med Hx Pulmonary (Asthma,TB): No (09/21/2016 10:43:Alison Rae RN) Med Hx Breast: No (09/21/2016 10:43:Alison Rae RN) Med Hx FINISHED GOODS INSPECTOR Surgery: No (09/21/2016 10:43:Alison Rae RN) Med Hx Hospitalization/Surgery: No (09/21/2016 10:43:Alison Rae RN) Med Hx Anesthetic Complications: No (09/21/2016 10:43:Alison Rae RN) Med Hx Abnormal Pap Smear: Yes (09/21/2016 10:43:Alison Rae RN) Other Medical Diseases: Yes (09/21/2016 10:43:Alison Rae RN) Med Hx Significant Family Hx: No (09/21/2016 10:43:Alison Rae RN) Details of Med/Surg Hx: Diabetes: GDM on Glyburide psych: major depressive disorder Kidney: Born with 1 kidney Abnormal Pap: 2010 with colpo Other: Dislocated knee x2 (09/21/2016 10:43:Tuyet Bhatti RN) INFECTIOUS HISTORY Inf Hx Gonorrhea: No (09/21/2016 10:43:Alison Rae RN) Inf Hx Chlamydia: No (09/21/2016 10:43:Alison Rae RN) Inf Hx Syphilis: No (09/21/2016 10:43:Alison Rae RN) Inf Hx HIV/AIDS: No (09/21/2016 10:43:Alison Rae RN) Inf Hx Human Papilloma Virus: No (09/21/2016 10:43:Alison Rae RN) Inf Hx Pt/Partner Genital Herpes: No (09/21/2016 10:43:Alison Rae RN) Inf Hx Tuberculosis/Exposure: No (09/21/2016 10:43:Alison Rae RN) Inf Hx Hepatitis B,C: No (09/21/2016 10:43:Alison Rae RN) Inf Hx Rash or Viral Illness: No (09/21/2016 10:43:Alison Rae RN) GENETIC HISTORY Gen Hx Age >=35 at FRANK: No (09/21/2016 10:43:Alison Rae RN) Gen Hx Thalassemia: No (09/21/2016 10:43:Alison Rae RN) Gen Hx Congenital Heart Defect: No (09/21/2016 10:43:Alison Rae RN) Gen Hx Neural Tube Defect: No (09/21/2016 10:43:Alison Rae RN) Gen Hx Down's Syndrome: No (09/21/2016 10:43:Alison Rae RN) Gen Hx Edmar-Sachs: No (09/21/2016 10:43:Alison Rae RN) Gen Hx Beau: No (09/21/2016 10:43:Alison Rae RN) Gen Hx Familial Dysautonomia: No (09/21/2016 10:43:Alison Rae RN) Gen Hx Sickle Cell Disease/Trait: No (09/21/2016 10:43:Alison Rae RN) Gen Hx Hemophilia/Blood Disorder: No (09/21/2016 10:43:Alison Rae RN) Gen Hx Muscular Dystrophy: No (09/21/2016 10:43:Alison Rae RN) Gen Hx Cystic Fibrosis: No (09/21/2016 10:43:Alison Rae RN) Gen Hx Huntingtons Chorea: No (09/21/2016 10:43:Alison Rae RN) Gen Hx Mental Retardation/Autism: No (09/21/2016 10:43:Alison Rae RN) Gen Hx Tested for Fragile X: No (09/21/2016 10:43:Alison Rae RN) Gen Hx Other Inher/Chromosomal: No (09/21/2016 10:43:Alison Rae RN) Gen Hx Maternal Metabolic DO: No (09/21/2016 10:43:Alison Rae RN) Gen Hx Pt Father or FOB Defect: No (09/21/2016 10:43:Alison Rae RN) Gen Hx Other Genetic History: No (09/21/2016 10:43:Alison Rae RN) Gen Hx Drugs/Meds since LMP: Yes (09/21/2016 10:43:Tuyet Bhatti RN) Gen Hx Medications: fioricet, glyburide, pnv (09/21/2016 10:43:Tuyet Bhatti RN)
--- NOTE | 2016-10-23 06:16 | L&D Flow Sheet ---
LD Flowsheet Datetime Report Generated by CPN: 10/23/2016 06:15 Datetime: 10/22/2016 18:15 Stage of : Recovery (Marck Mccarthy RN) Pain Presence: None/Denies (Marck Mccarthy RN)
--- NOTE | 2016-10-23 06:16 | L&D Care Plan ---
LD CARE PLANS Datetime Report Generated by CPN: 10/23/2016 06:15 Datetime: 10/22/2016 06:07 Pain State: Risk For (Melodie Aguilar RN) Related To: Labor and Delivery Process; Surgical Procedure; Treatment and Procedures; Post (Melodie Aguilar RN) Goal(s): Patients Pain will be Assessed and Managed; Patient will Verbalize Adequate Relief of Pain or the Ability to [place] with Current Pain (Melodie Aguilar RN) Interventions: Assess Pain Severity on Scale of 0 (None) to 5 (Severe); Assess Type, Location and Intensity of Pain Each Time Client Reports Discomfort and Notify Provider if Unusal Pain Develops; Encourage Proper Breathing and Relaxation Techniques; Offer Alternatives Such as Repositioning, Calm Environment, Massages, Diversional Activities, Ice Pack, Splinting, and Ambulation; Administer Analgesics as Ordered; Assist with Epidural Placement as Appropriate; Evaluate Therapeutic Effectiveness of Medication and Treatments (Melodie Aguilar RN) Outcome: Patient will Report Absence or Relief of Pain Consistent with Established Pain Goal (Melodie Aguilar RN) Status: Ongoing (Melodie Aguilar RN) Outcome: Patient will have a Decrease in Signs and Symptoms of Discomfort (Melodie Aguilar RN) Status: Ongoing (Melodie Aguilar RN) Outcome: Pain will be Controlled During Procedures (Melodie Aguilar RN) Status: Ongoing (Melodie Aguilar RN) Anxiety State: Risk For (Melodie Aguilar RN) Related To: Labor and Delivery Process; Surgical Procedure; Medical Interventions (Melodie Aguilar RN) Goal(s): Patient will have Decreased Anxiety and be able to Function at Acceptable Levels (Melodie Aguilar RN) Interventions: Assess Verbal and Nonverbal Behavioral Indicators of Anxiety; Assist Patient to Identify and Verbalize Symptoms of Anxiety; Identify and Demonstrate Techniques to Control Anxiety; Assist Patient with Coping Mechanisms to Manage Anxiety; Provide Theraputic Touch for the Patient; Explain to Patient, Using a Calm Reassuring Approach and Nonmedical Terms, All Activities, Procedures, and Concerns; Instruct Patient and Family about Post Discharge Care, Limitations, Symptoms to Report and Resources Available (Melodie Aguilar RN) Outcome: Patient will Identify, Verbalize and Demonstrate Techniques to Control Anxiety (Melodie Aguilar RN) Status: Ongoing (Melodie Aguilar RN) Outcome: Patient's Posture, Facial Expressions, Gestures and Activity Level will Reflect Decreased Anxiety (Melodie Aguilar RN) Status: Ongoing (Melodie Aguilar RN) Outcome: Patient will Verbalize a Sense of Control and/or Acceptance of the Situation (Melodie Aguilar RN) Status: Ongoing (Melodie Aguilar RN) Outcome: Patient will Identify and Utilize Support Person (Melodie Aguilar RN) Status: Ongoing (Melodie Aguilar RN) Knowledge Deficit State: Risk For (Melodie Aguilar RN) Related To: Labor and Delivery Process; Surgical Procedures; Treatment and Procedures; Feeding and Care (Melodie Aguilar RN) Goal(s): Patient will Accurately Verbalize Understanding of Plan of Care and Treatment; Patient and Family will Accurately Verbalize Understanding of the Disease Process (Melodie Aguilar RN) Interventions: Assess Motivation and Willingness of Patient/Family to Learn; Assess Preferred Learning Mode: One to One Instruction, Reading, Videos, Group Discussion or Demonstration; Assess Barriers to Learning: Pain, Emotional State, Language Barrier, Cognitive Impairment, Visual or Hearing Deficits; Assess Patient and Family Knowledge of Disease Process, Medications and Treatment; Discuss Therapy and/or Treatment Options, Describe Rationale Behind Management, Therapy and Treatment Recommendations; Instruct Patient and Family on Signs and Symptoms to Report; Instruct Patient and Family on Medication Effects and Side Effects; Provide Appropriate and Timely Education Using Multiple Techniques; Provide Patient and Family with Support Group Information and Resources; Give Clear and Thorough Explanations and Demonstrations (Melodie Aguilar RN) Outcome: Patient and Family will Verbalize Understanding of Condition, Treatment and Signs and Symptoms to Report (Melodie Aguilar RN) Status: Ongoing (Melodie Aguilar RN) Outcome: Patient will Identify Perceived Learning Needs and Express Motivation to Learn (Melodie Aguilar RN) Status: Ongoing (Melodie Aguilar RN) Outcome: Patient will Verbalize Understanding of Desired Content, and/or Performs Desired Skill Prior to Discharge (Melodie Aguilar RN) Status: Ongoing (Melodie Aguilar RN) Infection State: Risk For (Melodie Aguilar RN) Related To: Surgical Procedures; Prolonged Labor or Induction; Premature/Prolonged Rupture of Membranes; Invasive Procedures (Melodie Aguilar RN) Goal(s): The Patient will be Free of Infection, Vital Signs Stable and Lab Work within Normal Parameters (Melodie Aguilar RN) Interventions: Instruct and Reinforce Proper Handwashing, Hygiene, and Care Techniques to Patient and Family; Monitor Vital Signs; Monitor Patient for the Following Signs of Infection: Fever, Abdominal Tenderness, Unusual Discharge; Monitor Aminiotic Fluid, Urine and Lochia for Color and Odor; Observe Wounds, Incisions and Invasive Line Sites for Redness, Drainage and Edema; Assess IV Sites per Hospital Policy; Monitor Lab and Test Results and Notify Provider of Abnormal Findings; Assess Nutritional Status and Promote Good Nutrition (Melodie Aguilar RN) Outcome: Patient will Remain Free of Infection (Melodie Aguilar RN) Status: Ongoing (Melodie Aguilar RN) Outcome: Infection will be Recognized Early to Allow for Prompt Treatment (Melodie Aguilar RN) Status: Ongoing (Melodie Aguilar RN) Outcome: Patient will have Vital Signs Within Expected Range (Melodie Aguilar RN) Status: Ongoing (Melodie Aguilar RN) Fluid Volume State: Risk For (Melodie Aguilar RN) Related To: Surgical Procedures; Prolonged Labor or Induction; Hemorrhage; Anesthesia (Melodie Aguilar RN) Goal(s): Patient will Achieve and Maintain a Balanced Fluid Volume Status; Hemodynamically Stable (Melodie Aguilar RN) Interventions: Monitor Vital Signs; Auscultate Breath Sounds; Monitor Patient for Skin Turgor, Mucous Membranes, Dry Skin, Weakness, Headaches and Confusion; Provide Oral Fluids as Ordered; Initiate and Maintain Intravenous Fluids as Ordered; Monitor Intake and Output as Indicated Per Patient Status; Accurately Measure Blood Loss; Monitor Lab and Test Results as Obtained and Notify Provider of Abnormal Findings; Monitor Patient's Weight (Melodie Aguilar RN) Outcome: Patient will have Clear Lung Sounds (Melodie Aguilar RN) Status: Ongoing (Melodie Aguilar RN) Outcome: Patient will have Vital Signs within Expected Range (Melodie Aguilar RN) Status: Ongoing (Melodie Aguilar RN) Outcome: Urine Output will be within Expected Range (Melodie Aguilar RN) Status: Ongoing (Melodie Aguilar RN) Outcome: Patient will have Minimal Generalized or Upper Extremity Edema (Melodie Aguilar RN) Status: Ongoing (Melodie Aguilar RN) Injury State: Risk For (Melodie Aguilar RN) Related To: Labor and Delivery Process; Anesthesia; Risk to Status; Uteroplacental Perfusion; Hemorrhage, Placenta Previa and or Placental Abruption (Melodie Aguilar RN) Goal(s): Patient will Remain Free from Injury (Melodie Aguilar RN) Interventions: Monitoring as per Hospital Protocol; Assess Neurological Status; Perform Risk Assessment of Patients with Induction and ; Perform Fall Risk Assessment and Prevention per Hospital Protocol; Perform DVT Risk Assessment and Prophylaxis per Hospital Protocol; Ensure that Oxygen, Suction, and Resuscitation Medications and Equipment are Readily Available; Confirm Patient ID Prior to Procedure(s) and Medication Administration per Hospital Policy (Melodie Aguilar RN) Outcome: Successful Fall Risk Prevention (Melodie Aguilar RN) Status: Ongoing (Melodie Aguilar RN) Outcome: Patient will Deliver without Adverse [place]ela (Melodie Aguilar RN) Status: Ongoing (Melodie Aguilar RN) Outcome: Patient's Neurological Status will Remain Stable (Melodie Aguilar RN) Status: Ongoing (Melodie Aguilar RN) Impaired Skin Integrity State: Risk For (Melodie Aguilar RN) Related To: Vaginal Delivery; Surgical Procedures; Invasive Procedures (Melodie Aguilar RN) Goal(s): Patient will Maintain Optimal Skin Integrity, Free of Breakdown, Injury or Infection (Melodie Aguilar RN) Interventions: Complete Screening for Pressure Ulcer Risk and Initiate Protocol per Hospital Policy; Monitor Site of Skin Impairment for Color Changes, Redness, Swelling, Warmth, Pain or Other Signs of Infection; Encourage and Assist with Position Changes; Monitor Patient's Mobility Status; Provide Adequate Nutrition and Fluids; Teach Patient Appropriate Hygienic Care; Teach Patient/Family Skin Care Management (Melodie Aguilar RN) Outcome: Patient will not have Evidence of Injury Such as Skin Breakdown, Scrapes, Cuts, or Bruising (Melodie Aguilar RN) Status: Ongoing (Melodie Aguilar RN) Outcome: Patient will Report Any Altered Sensation or Pain at Site of Skin Impairment (Melodie Aguilar RN) Status: Ongoing (Melodie Aguilar RN) Outcome: Patients Incisions and Wounds will be without Signs or Symptoms of Infection (Melodie Aguilar RN) Status: Ongoing (Melodie Aguilar RN) Outcome: Patient will Demonstrate Understanding of Plan to Heal Skin and Prevent Reinjury and Verbalize Risk Factors (Melodie Aguilar RN) Status: Ongoing (Melodie Aguilar RN) Parenting Impaired State: Risk For (Melodie Aguilar RN) Related To: Apprehension Related to Care (Melodie Aguilar RN) Goal(s): Parents will Demonstrate Progressive Parenting Behaviors (Melodie Aguilar RN) Interventions: Assess for Adequacy of Support Systems; Observe and Encourage Patient/Family Infant Attachment and Bonding Activities and Provide Feedback; Assess Patient/Family Understanding of Infant's Condition and Provide Accurate Information About Condition, Treatment and Prognosis; Assess for Patient/Family Behaviors that May Indicate Lack of Attachment; Provide a Safe Non-judgmental Environment for Patient/Family to Discuss Concerns; Promote Patient/Family Cohesiveness by Encouraging Discussion and Problem Solving; Operations Intelligence Referral as Indicated (Melodie Aguilar RN) Outcome: Patient/Family will Discuss Their Fears and the Possibility of Difficulties with Parenting (Melodie Aguilar RN) Status: Ongoing (Melodie Aguilar RN) Outcome: Patient/Family will Exhibit Appropriate Bonding Behaviors with Infant (Melodie Aguilar RN) Status: Ongoing (Melodie Aguilar RN) Outcome: Patient/Family will Verbalize Positive Feelings and Demonstrate Affection and Caring Toward (Melodie Aguilar RN) Status: Ongoing (Melodie Aguilar RN) Nutrition State: Risk For (Melodie Aguilar RN) Related To: ; (Melodie Aguilar RN) Goal(s): Patient will have an Intake of Nutrients Sufficient to Meet Metabolic Needs (Melodie Aguilar RN) Interventions: Nutritional Screening and Assessment per Hospital Policy; Consult Wrapper Dipper for Further Assessment and Recommendations Regarding Food Preferences and Nutritional Support; Allow Patient to Plan and Order Diet when Possible; Monitor Laboratory Values That Indicate Nutritional Well-being; Consult Section Plotter Operator for Nutritional Support Regarding Requirements; Document Actual Weight Initially and Weekly (Do Not Estimate); Encourage Patient Participation in Maintaining a Food Log as Indicated; Educate Patient on the Importance of Maintaining an Adequate Caloric Intake (Melodie Aguilar RN) Outcome: Patient will Receive Adequate Calories and Fluid Volume to Meet Metabolic Needs (Melodie Aguilar RN) Status: Ongoing (Melodie Aguilar RN) Outcome: Patient will Select Foods or Meals that Support Adequate Nutrition (Melodie Aguilar RN) Status: Ongoing (Melodie Agiular RN) Grieving State: Not Applicable (Melodie Aguilar RN) Additional Care Plan State: Risk For (Melodie Aguilar RN) Nursing Diagnosis or r/t: (Melodie Aguilar RN) Goal(s): - every 2-3 hours -no bottles unless medically necessary and already attempted -no pacifiers (Melodie Aguilar RN) Interventions: -direct response consultant involvement (Melodie Aguilar RN) Outcome Status: Ongoing (Melodie Aguilar RN)
[2016-10-23 07:43] LABS: HEMATOCRIT 27.7 % (36.0-47.0); HGB HCT DIFFERENCE -0.7; MEAN CORPUSCULAR HEMOGLOBIN 26.5 pg (27.0-33.4); MEAN CORPUSCULAR HGB CONC 32.5 g/dL (32.0-36.0); MEAN CORPUSCULAR VOLUME 82 fl (80-97); RED BLOOD COUNT 3.39 10^6/uL (3.72-5.28); RED CELL DISTRIBUTION WIDTH 12.8 % (11.5-14.0); WHITE BLOOD COUNT 15.6 10^3/uL (4.0-10.5)
--- NOTE | 2016-10-23 08:55 | PDOC PROGRESS REPORT ---
Subjective-OB Subjective: Post Delivery Day: 26 year old. Denies any needs at this time Physical Exam (OB) Vital Signs: Temp Pulse Resp BP Pulse Ox 97.9 F 63 16 107/68 100 10/23/16 07:29 10/23/16 07:29 10/23/16 07:29 10/23/16 07:29 10/23/16 07:29 Intake & Output 10/22/16 10/23/16 10/24/16 06:59 06:59 06:59 Intake Total 400 Balance 400 Weight 63.15 kg - Lochia Lochia Amount: Scant < 10 ml Lochia Color: Rubra/Red - Abdomen Description: Tender, Soft Hernia Present: No Bowel Sounds: Normoactive Flatus Presence: Absent Stool: No Fundal Description: Firm, Non-Midline Fundal Height: u/u - u/2 Objective-Diagnostic Laboratory: 10/23/16 07:25 10/22/16 10/23/16 08:04 07:25 WBC 15.6 H RBC 3.39 L Hgb 9.0 L Hct 27.7 L MCV 82 MCH 26.5 L MCHC 32.5 RDW 12.8 Plt Count 289 Blood Type O POSITIVE Antibody Screen NEGATIVE
[2016-10-23] MEDS: DOCUSATE SODIUM 100 MG CAPSULE PO SCH ×2 (10:06→17:38)
[2016-10-23] MEDS: SENNOSIDES/DOCUSATE 8.6-50 MG 1 EACH TABLET PO SCH (10:06)
[2016-10-23] MEDS: PRENATAL VITAMIN W-O CA NO5/FE FUMARATE/FA CAPSULE PO SCH (10:07)
[2016-10-23] MEDS: FERROUS SULFATE 325 MG TABLET PO SCH ×2 (10:07→17:38)
[2016-10-24] MEDS: IBUPROFEN 800 MG TABLET PO SCH (06:12)
[2016-10-24 06:59] LABS: HEMATOCRIT 27.6 % (36.0-47.0); HEMOGLOBIN 9.2 g/dL (12.0-15.5); MEAN CORPUSCULAR HGB CONC 33.1 g/dL (32.0-36.0); MEAN CORPUSCULAR VOLUME 82 fl (80-97); RED BLOOD COUNT 3.39 10^6/uL (3.72-5.28); RED CELL DISTRIBUTION WIDTH 12.9 % (11.5-14.0)
--- NOTE | 2016-10-24 09:16 | PDOC DISCHARGE SUMMARY ---
Final Diagnosis Discharge Date: 10/24/16 - Final Diagnosis (1) Acute blood loss anemia Is this a current diagnosis for this admission?: Yes (2) GDM (gestational diabetes mellitus) Is this a current diagnosis for this admission?: Yes (3) Unilateral agenesis of kidney Is this a current diagnosis for this admission?: Yes (4) Vaginal delivery Is this a current diagnosis for this admission?: Yes Discharge Data - Discharge Medication Home Medications: [id number]/Iron Fumarate/FA/Dss [ 19 Tablet] 1 each PO DAILY 06/24/14 Docusate Sodium [Colace 100 mg Capsule] 100 mg PO BID #60 capsule 10/24/16 Ferrous Sulfate [Feosol 325 mg Tablet] 325 mg PO BID #60 tablet 10/24/16 Ibuprofen [Motrin 800 mg Tablet] 800 mg PO Q8 #60 tablet 10/24/16 Gestational Age: 39.1 Reason(s) for Admission: Induction of Labor Procedures: NST Intrapartum Procedure(s): Spontaneous Vaginal Delivery - Data Baby 1 Male at 1 minute: 8 at 5 minutes: 9 Weight: 3115 kg Home with Mother: Yes Complications: No - Diagnosis Test Laboratory: Temp Pulse Resp BP Pulse Ox 98.0 F 79 16 101/57 L 99 10/23/16 20:00 10/23/16 20:00 10/23/16 20:00 10/23/16 20:00 10/23/16 20:00 10/22/16 10/22/16 10/23/16 07:21 08:04 07:25 RBC 3.53 L 3.39 L Hgb 9.7 L 9.0 L Hct 28.7 L 27.7 L Urine Opiates Screen NEGATIVE 10/24/16 06:23 RBC 3.39 L Hgb 9.2 L Hct 27.6 L Urine Opiates Screen - Discharge information/Instructions Discharge Activity: Activity As Tolerated, No Lifting Over 10 Pounds, Pelvic Rest, No tub bath Discharge Diet: Regular Disposition: HOME, SELF-CARE Follow up with: [facility] in: 4, Weeks
[2016-10-24 09:42] VITALS: BP 110/68
[2016-10-24] MEDS: PRENATAL VITAMIN W-O CA NO5/FE FUMARATE/FA CAPSULE PO SCH (10:02)
[2016-10-24] MEDS: FERROUS SULFATE 325 MG TABLET PO SCH (10:02)
[2016-10-24] MEDS: DOCUSATE SODIUM 100 MG CAPSULE PO SCH (10:02)
[2016-10-24] MEDS: SENNOSIDES/DOCUSATE 8.6-50 MG 1 EACH TABLET PO SCH (10:02)
== END 2016-10-24 12:50 | disposition home or self-care (01) | DRG 775 ==
LOC: LR 07:11 → 2S 18:17
PROVIDERS: ADMIT Specialist; ATTEND Specialist
PROC: 10E0XZZ Delivery of Products of Conception, External Approach (ICD-10-PCS; principal; 2016-10-22)
PROC: 10907ZC Drainage of Amniotic Fluid, Therapeutic from Products of Conception, Via Natural or Artificial Opening (ICD-10-PCS; 2016-10-22)
PROC: 4A1HXCZ Monitoring of Products of Conception, Cardiac Rate, External Approach (ICD-10-PCS; 2016-10-22)
DX: O24.425 Gestational diabetes mellitus in childbirth, controlled by oral hypoglycemic drugs (principal); Q60.0 Renal agenesis, unilateral; D62 Acute posthemorrhagic anemia; O99.89 Other specified diseases and conditions complicating pregnancy, childbirth and the puerperium; O32.6XX0 Maternal care for compound presentation, not applicable or unspecified; O99.344 Other mental disorders complicating childbirth; O99.02 Anemia complicating childbirth; F32.9 Major depressive disorder, single episode, unspecified; Z3A.40 40 weeks gestation of pregnancy; Z37.0 Single live birth
CPT/HCPCS: 36415; 80307; 81005; 82962; 85025; 85027; 86592; 86850; 86900; 86901; 94760; J2590; J3490